=== PATIENT | male | born 1935 | race Caucasian/White ===

== ENCOUNTER 2017-12-19 16:01 | Inpatient (IN) ==
[2017-12-19] MEDS ORDERED: NITROGLYCERIN 0.4 MG SUBLINGUAL TABLET SL PRN (16:13)
[2017-12-19] MEDS ORDERED: ASPIRIN 81 MG CHEWABLE TABLET PO ONE (16:13)
[2017-12-19] MEDS ORDERED: Verapamil 5 MG/2 ML VIAL IVP ONE ×2 (16:14→17:05)
--- NOTE | 2017-12-19 16:16 | Emergency Department Report ---
Chest Pain HPI - General Stated Complaint: "raising" heartbeat & CP <DrissFlo C - 12/19/17 22:48> Time Seen by Provider: 12/19/17 16:13 <DrissFlo Morales - 12/19/17 22:48> Source: patient, family <Antonio Acuña Q - 12/19/17 18:12> Mode of arrival: ambulatory <Antonio Acuña - 12/19/17 18:12> Limitations: no limitations <Antonio Acuña - 12/19/17 18:12> - History of Present Illness HPI narrative: Patient is an 82-year-old male presents emergent primary for evaluation of racing heart. Patient does have a history of atrial fibrillation, not normally in atrial fibrillation. Patient believes last time he was in atrial fibrillation was 2 years ago. Patient is also transitioning onto Xarelto because he has a scheduled hernia surgery on Friday. Patient is to take 1 Xarelto tonight believe one tomorrow and then schedule his surgery on Friday. Patient at any rate today suddenly felt a racing heart about 1 PM, over the course the day he is continued to feel it so this evening he presented to the ER on arrival patient is irregularly irregular 145 and atrial fibrillation. Patient having minimal chest pain minimal shortness of breath. <Antonio Acuña Q - 12/19/17 18:12> - Related Data Home Medications Medication Instructions Recorded Confirmed Nitroglycerin 0.4 mg SL Q5MIN PRN #0 10/03/12 12/19/17 Dexlansoprazole [Dexilant] 60 mg PO DAILY #0 03/16/14 12/19/17 Albuterol Sulfate [Proair Hfa] 1 puff INH Q4H PRN #0 10/29/15 12/19/17 Warfarin Sodium 2 mg PO DAILY #0 10/29/15 12/19/17 Acetaminophen/Diphenhydramine 1 tab PO HS PRN 12/19/17 12/19/17 [Acetaminophen-Diphenhyd 500-25] Allopurinol [Zyloprim] 100 mg PO DAILY 12/19/17 12/19/17 Aspirin [Ecotrin] 81 mg PO DAILY 12/19/17 12/19/17 Clopidogrel Bisulfate [Clopidogrel] 75 mg PO DAILY 12/19/17 12/19/17 Digoxin [Digoxin] 125 mcg PO DAILY 12/19/17 12/19/17 Ferrous Sulfate [Iron] 325 mg PO DAILY 12/19/17 12/19/17 Fluticasone/Vilanterol Inhaler 1 puff INH DAILY 12/19/17 12/19/17 [Breo Ellipta 100-25 mcg Inhaler] Furosemide [Lasix 40 mg Tab] 40 mg PO DAILY 12/19/17 12/19/17 LORazepam [Ativan] 0.5 mg PO TID PRN 12/19/17 12/19/17 Levomilnacipran [Fetzima] 40 mg PO HS 12/19/17 12/19/17 Metoprolol Succinate [Toprol Xl] 50 mg PO HS 12/19/17 12/19/17 Montelukast [Singulair] 10 mg PO DAILY PRN 12/19/17 12/19/17 Nitroglycerin Patch [Nitro-Dur 0.2 1 patch TD DAILY 12/19/17 12/19/17 mg/Hr] Potassium Chloride 20 meq PO DAILY 12/19/17 12/19/17 Rivaroxaban [Xarelto] 20 mg PO O 12/19/17 12/19/17 Rosuvastatin [Crestor] 5 mg PO Q2D 12/19/17 12/19/17 Spironolactone [Aldactone] 25 mg PO DAILY 12/19/17 12/19/17 Tamsulosin [Flomax] 0.4 mg PO HS 12/19/17 12/19/17 Verapamil HCl [Verapamil ER] 120 mg PO DAILY 12/19/17 12/19/17 <Flo Naqvi - 12/19/17 22:48> Allergies Allergy/AdvReac Type Severity Reaction Status Date / Time No Known Allergies Allergy Verified 12/19/17 16:16 <Flo Naqvi - 12/19/17 22:48> Review of Systems Constitutional: Denies: fever, chills, weakness <Antonio Acuña Q - 12/19/17 18 :12> Eyes: Denies: eye pain, eye discharge <Antonio Acuña Q - 12/19/17 18:12> ENT: Denies: ear pain, throat pain, dental pain <Antonio Acuña Q - 12/19/17 18 :12> Cardiovascular: Reports: chest pain, dyspnea on exertion <Antonio Acuña Q - 18:12> Respiratory: Denies: cough, dyspnea, wheezes <Antonio Acuña 12/19/17 18:12 > Gastrointestinal: Denies: abdominal pain, nausea, vomiting <Antonio Acuña Q 12/19/17 18:12> Genitourinary: Denies: urgency, dysuria, frequency <Antonio Acuña 18:12> Neurological: Denies: headache, weakness, numbness <Antonio Acuña 18:12> Endocrine: Denies: fatigue <Antonio Acuña 12/19/17 18:12> Hematological/Lymphatic: Denies: easy bleeding <Antonio Acuña 12/19/17 18: 12> Allergic/Immunologic: Denies: facial swelling <Antonio Acuña 12/19/17 18: 12> [facility] Medical History (Last Reviewed 12/03/17 @ 14:51 by TAVON Odell) Atrial fibrillation (Acute Medical) CAD (coronary artery disease) (Acute Medical) Cataract (Acute Medical) Colon polyp (Acute Medical) High blood pressure (Acute Medical) IBD (inflammatory bowel disease) (Acute Medical) Pacemaker (Acute Medical) Anxiety (Chronic Medical) Asthma (Chronic Medical) Bronchitis (Chronic Medical) Depression (Chronic Medical) Stomach ulcer (Chronic Medical) Peewee-Weir breathing disorder (Resolved Medical) Stroke (Resolved Medical) <Flo Naqvi 12/19/17 22:48> Surgical History: Tonsillectomy 1953 Jessica lacy,. Quad bypass 2002,. Kidney Stones removed 1973,. Numerous stents,. Rt Shoulder Surgery,. Gallbladder, <Antonio Acuña 12/19/17 16:16> Family History: Family History (Last Reviewed 12/03/17 @ 14:51 by TAVON Odell) Mother Arthritis Cancer of thyroid High blood pressure Father Dementia <Flo Naqvi - 12/19/17 22:48> - Social History Smoking status: Never smoker <Antonio Acuña Q 12/19/17 16:16> Substance use type: does not use <Antonio Acuña 12/19/17 16:16> Alcohol intake frequency: does not drink <Antonio cAuña Q - 12/19/17 16:16> Household members: spouse <Antonio Acuña Q - 12/19/17 16:16> Current occupational status: retired <Antonio Acuña Q - 12/19/17 16:16> Physical Exam - General General appearance: alert, in no apparent distress <Helen Acuñan Q - 18:12> - Eye Eye exam: Present: PERRL, EOMI <Antonio Acuña Q - 12/19/17 18:12> - ENT ENT exam: Present: normal oropharynx, mucous membranes moist, TM's normal bilaterally <Antonio Acuña Q - 12/19/17 18:12> - Neck Neck exam: Present: full ROM, trachea midline <Helen Acuñan 12/19/17 18: 12> - Chest Chest inspection: Present: symmetric chest wall rise. Absent: tenderness < ArianneAntonio Q 12/19/17 18:12> - Respiratory Respiratory exam: Present: normal lung sounds bilaterally. Absent: respiratory distress, wheezes, stridor <Antonio Acuña Q - 12/19/17 18:12> - Cardiovascular Cardiovascular exam: Present: tachycardia, irregular rhythm, normal heart sounds <Helen Acuñan Q - 12/19/17 18:12> - Abdominal Exam Abdominal exam: Present: soft, normal bowel sounds. Absent: distention, tenderness <Helen Acuñan Q 12/19/17 18:12> - Back Exam Back exam: Present: full ROM <Helen Acuñan 12/19/17 18:12> - Skin Skin exam: Present: warm, dry <Antonio Acuña Q - 12/19/17 18:12> - Neurological Exam Neurological exam: Present: alert, oriented X3 <Helen Acuñan Q - 12/19/17 18: 12> - Psychiatric Psychiatric exam: Present: normal affect, normal mood <Helen Acuñan Q - 12/19 18:12> Course Vital Signs Temperature 98.6 F 12/19/17 16:10 Pulse Rate 146 H 12/19/17 16:10 Respiratory Rate 20 12/19/17 16:10 Blood Pressure 160/88 H 12/19/17 16:10 Pulse Oximetry 95 04/13/18 16:10 Temperature 98.6 F 12/19/17 16:10 Pulse Rate 110 H 12/19/17 20:44 Respiratory Rate 24 12/19/17 20:00 Blood Pressure 109/58 12/19/17 20:15 Pulse Oximetry 94 12/19/17 20:15 <Flo Naqvi C - 12/19/17 22:48> Vital Signs Temperature 98.6 F 12/19/17 16:10 Pulse Rate 146 H 12/19/17 16:10 Respiratory Rate 20 12/19/17 16:10 Blood Pressure 160/88 H 12/19/17 16:10 Pulse Oximetry 95 12/19/17 16:10 Temperature 98.6 F 12/19/17 16:10 Pulse Rate 110 H 12/19/17 20:44 Respiratory Rate 24 12/19/17 20:00 Blood Pressure 109/58 12/19/17 20:15 Pulse Oximetry 94 12/19/17 20:15 <Antonio Acuña Q - 12/19/17 18:12> Chest Pain - MDM Narrative Medical decision making narrative: The amiodarone does not convert the patient from atrial fibrillation. Dr. Lambert is recontacted and recommends admission to the hospitalist service for amiodarone protocol. Patient is discussed with Dr. Jorge Luis Briggs will be admitted to the hospitalist service to the ICU for further evaluation and treatment and amiodarone protocol. Patient is in agreement with the current plan of management. Dr. Briggs agrees to accept the patient to his service. Dr. Briggs will perform his own cardiology consultation to Dr. Huff. <Flo Naqvi - 12/19/17 22:48> Patient rate controlled with 15 mg of verapamil. Did discuss with hospital service and cardiology the possibility patient placement [facility] for cardioversion if needed. No director of land acquisition available to do cardioversion this week in. Discuss case with Dr. Lambert transition mgr for Dr. Barnett, patient's director of land acquisition. He would recommend 150 mg of amiodarone, continue to monitor for an hour and see if patient spontaneously converts. We'll transfer case to Dr. Naqvi, oncoming physician <Antonio Acuña - 12/19/17 18:12> - Differential Diagnosis Likely: fracture of rib, pneumothorax, stable angina, unstable angina pectoris, atypical chest pain, st elevation myocardial infarction, costochondritis, chest pain, biliary colic <Antonio Acuña Q - 12/19/17 18:12> - Medical Records Data Attestation: I reviewed the patient's medical records. <Antonio Acuña Q - 18:12> - Lab Data Attestation: I reviewed the patient's lab results. <Antonio Acuña Q - 18:12> Result diagrams: 12/19/17 16:50 12/19/17 16:50 <Flo Naqvi C - 12/19/17 22:48> Lab Results 12/19/17 12/19/17 12/19/17 Range/Units 16:50 16:50 16:50 WBC 9.2 (4.5-11.0) T/MM3 RBC 5.20 (4.50-5.90) M/MM3 Hgb 16.3 (13.5-17.5) GM/DL Hct 48.5 (41-53) % MCV 93.3 (80-100) UM3 MCH 31.3 (26-34) UUG MCHC 33.6 (31-37) GM/DL RDW Std Deviation 44.3 (36.9-50.2) FL Plt Count 218 (130-400) T/MM3 MPV 9.4 (9.4-12.4) UM3 Immature Gran % (Auto) 0.3 (0.0-0.5) % Neut % (Auto) 61.7 (33-66) % Lymph % (Auto) 22.2 L (23-45) % [place] % (Auto) 13.3 H (0-9.0) % Eos % (Auto) 2.2 (0-4) % Baso % (Auto) 0.3 (0-2) % Neut # (Auto) 5.7 (1.8-7.7) T/MM3 Lymph # (Auto) 2.1 (1-4.8) T/MM3 [place] # (Auto) 1.2 H (0-0.8) T/MM3 Eos # (Auto) 0.2 (0-0.5) T/MM3 Baso # (Auto) 0.0 (0-0.2) T/MM3 Abs Immat Gran (auto) 0.03 (0.00-0.03) T/MM3 INR 1.16 (0.92-1.18) Turbidity < 20 (0-20) Sodium 143 (134-144) MEQ/L Potassium 4.2 (3.6-5) MEQ/L Chloride 102 (98-107) MEQ/L Carbon Dioxide 27 (22-30) MEQ/L Anion Gap 14 (5-15) meq/L BUN 21.0 H (9-20) MG/DL Creatinine 1.1 (0.8-1.5) mg/dL GFR Calculation 64 BUN/Creatinine Ratio 19 (6-26) RATIO Glucose 137 H (75-110) MG/DL Calculated Osmolality 280 (261-280) MOSM/KG Calcium 9.4 (8.4-10.2) MG/DL Magnesium 2.1 (1.6-2.3) MG/DL Total Bilirubin 0.30 (0.20-1.30) MG/DL Icterus Index < 2 (0-7) AST 29 (17-59) U/L ALT 24 (1-50) U/L Alkaline Phosphatase 63 (38-126) U/L Troponin I < 0.012 (0-0.12) ng/ml NT-Pro-B Natriuret Pep 1940 H (0-175) pg/mL Total Protein 7.0 (6.3-8.2) g/dL Albumin 4.4 (3.5-5.0) g/dL Globulin 2.6 (2.4-3.6) G/DL Albumin/Globulin Ratio 1.7 (1.1-2.2) RATIO TSH 1.11 (0.47-4.68) mIU/L Specimen Hemolysis 21 (0-25) Digoxin 1.4 (0.8-2.0) NG/ML <NaqviBlaynek C - 12/19/17 22:48> Lab Results 12/19/17 12/19/17 12/19/17 Range/Units 16:50 16:50 16:50 WBC 9.2 (4.5-11.0) T/MM3 RBC 5.20 (4.50-5.90) M/MM3 Hgb 16.3 (13.5-17.5) GM/DL Hct 48.5 (41-53) % MCV 93.3 (80-100) UM3 MCH 31.3 (26-34) UUG MCHC 33.6 (31-37) GM/DL RDW Std Deviation 44.3 (36.9-50.2) FL Plt Count 218 (130-400) T/MM3 MPV 9.4 (9.4-12.4) UM3 Immature Gran % (Auto) 0.3 (0.0-0.5) % Neut % (Auto) 61.7 (33-66) % Lymph % (Auto) 22.2 L (23-45) % [place] % (Auto) 13.3 H (0-9.0) % Eos % (Auto) 2.2 (0-4) % Baso % (Auto) 0.3 (0-2) % Neut # (Auto) 5.7 (1.8-7.7) T/MM3 Lymph # (Auto) 2.1 (1-4.8) T/MM3 [place] # (Auto) 1.2 H (0-0.8) T/MM3 Eos # (Auto) 0.2 (0-0.5) T/MM3 Baso # (Auto) 0.0 (0-0.2) T/MM3 Abs Immat Gran (auto) 0.03 (0.00-0.03) T/MM3 INR 1.16 (0.92-1.18) Turbidity < 20 (0-20) Sodium 143 (134-144) MEQ/L Potassium 4.2 (3.6-5) MEQ/L Chloride 102 (98-107) MEQ/L Carbon Dioxide 27 (22-30) MEQ/L Anion Gap 14 (5-15) meq/L BUN 21.0 H (9-20) MG/DL Creatinine 1.1 (0.8-1.5) mg/dL GFR Calculation 64 BUN/Creatinine Ratio 19 (6-26) RATIO Glucose 137 H (75-110) MG/DL Calculated Osmolality 280 (261-280) MOSM/KG Calcium 9.4 (8.4-10.2) MG/DL Magnesium 2.1 (1.6-2.3) MG/DL Total Bilirubin 0.30 (0.20-1.30) MG/DL Icterus Index < 2 (0-7) AST 29 (17-59) U/L ALT 24 (1-50) U/L Alkaline Phosphatase 63 (38-126) U/L Troponin I < 0.012 (0-0.12) ng/ml NT-Pro-B Natriuret Pep 1940 H (0-175) pg/mL Total Protein 7.0 (6.3-8.2) g/dL Albumin 4.4 (3.5-5.0) g/dL Globulin 2.6 (2.4-3.6) G/DL Albumin/Globulin Ratio 1.7 (1.1-2.2) RATIO TSH 1.11 (0.47-4.68) mIU/L Specimen Hemolysis 21 (0-25) Digoxin 1.4 (0.8-2.0) NG/ML <Antonio Acuña Q - 12/19/17 18:12> - Radiology Data Attestation: I reviewed the patient's radiology results. <Antonio Acuña 18:12> No acute cardiopulmonary findings <Antonio Acuña 12/19/17 18:12> - EKG Data EKG #1 EKG attestation: Yes: I reviewed and interpreted this EKG. <Helen Acuñan Q 12/19/17 18:12> Rate: tachycardia <Helen Acuñan Q 12/19/17 18:12> Rhythm: A.Fib <Helen Acuñan Q 12/19/17 18:12> [place]/QRS: normal <Helen Acuñan 12/19/17 18:12> Interpretation: no acute changes <ArianneHelenn Q 12/19/17 18:12> EKG #2 EKG attestation: Yes: I reviewed and interpreted this EKG. <Helen Acuñan Q 12/19/17 18:12> Rate: tachycardia <ArianneAntonio Q 12/19/17 18:12> Rhythm: A.Fib <ArianneAntonio Q 12/19/17 18:12> [place]/QRS: normal <SmithfieldHelenn Q 12/19/17 18:12> Interpretation: no acute changes <Helen Acuñan Q 12/19/17 18:12> Disposition Clinical Impression: Atrial fibrillation <Flo Naqvi 12/19/17 22:48> Disposition: 02 To [facility] Acute Care <Flo Naqvi 12/19/17 22:48> Condition: Stable <Flo Naqvi 12/19/17 22:48> Prescriptions: No Action Warfarin Sodium 2 mg PO DAILY #0 Albuterol Sulfate [Proair Hfa] 1 puff INH Q4H PRN #0 PRN Reason: Prn Orders Ferrous Sulfate [Iron] 325 mg PO DAILY Clopidogrel Bisulfate [Clopidogrel] 75 mg PO DAILY Acetaminophen/Diphenhydramine [Acetaminophen-Diphenhyd 500-25] 1 tab PO HS PRN PRN Reason: Prn Orders Allopurinol [Zyloprim] 100 mg PO DAILY Aspirin [Ecotrin] 81 mg PO DAILY LORazepam [Ativan] 0.5 mg PO TID PRN PRN Reason: Anxiety Montelukast [Singulair] 10 mg PO DAILY PRN PRN Reason: Allergy Symptoms Nitroglycerin Patch [Nitro-Dur 0.2 mg/Hr] 1 patch TD DAILY Tamsulosin [Flomax] 0.4 mg PO HS Fluticasone/Vilanterol Inhaler [Breo Ellipta 100-25 mcg Inhaler] 1 puff INH DAILY Levomilnacipran [Fetzima] 40 mg PO HS Metoprolol Succinate [Toprol Xl] 50 mg PO HS Digoxin [Digoxin] 125 mcg PO DAILY Spironolactone [Aldactone] 25 mg PO DAILY Rosuvastatin [Crestor] 5 mg PO Q2D Potassium Chloride 20 meq PO DAILY Nitroglycerin 0.4 mg SL Q5MIN PRN #0 PRN Reason: Chest Pain Dexlansoprazole [Dexilant] 60 mg PO DAILY #0 Rivaroxaban [Xarelto] 20 mg PO O Furosemide [Lasix 40 mg Tab] 40 mg PO DAILY Verapamil HCl [Verapamil ER] 120 mg PO DAILY <Flo Naqvi 12/19/17 22: 48> Time of Disposition: 19:00 (Admit. Dr. Briggs. ) <Flo Naqvi 12/19/17 22:48 > - Seen By: physician <Flo Naqvi 12/19/17 22:48>
--- OUTSIDE RECORDS SUMMARY | 2017-12-19 16:27 | External Medical Summary | Referral Summary ---
:1935 Author Organization [facility], [address] [place] [id number] Care Team Providers Name Role Phone Tang James Primary Care Physician Encounter VC Date(s): 06/03/17 - 06/03/17 [facility] [place] [address] [place] [phone] Discharge Diagnosis: Hard skin lesion. Discharge Diagnosis: Mixed anxiety and depressive disorder Discharge Diagnosis: Pain of right breast Discharge Disposition: 01-Home or Self Care Attending Physician: Tang James DO Admitting Physician: Tang James DO Vital Signs Most recent to oldest [Reference Range]: 1 Temperature Tympanic [36.6-38.1 degC] 36.2 degC *LOW* (06/03/17 8:32 AM) Peripheral Pulse Rate [60-100 bpm] 81 bpm (06/03/17 8:32 AM) Respiratory Rate [14-20 br/min] 18 br/min (06/03/17 8:32 AM) Blood Pressure [90-140/60-90 mmHg] 132/58 mmHg (06/03/17 8:32 AM) SpO2 94 % (06/03/17 8:32 AM) Problem List Condition Effective Dates Status Health Status Informant Acute prostatitis Active (disorder)(Confirmed) Allergic rhinitis Active (disorder)(Confirmed) Anemia (disorder)(Confirmed) Active Anxiety(Confirmed) Active Atrial fibrillation Active (disorder)(Confirmed) CAD(Confirmed) Active 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 Peewee-Weir respiration(Confirmed) Chronic airway obstruction, not Active elsewhere classified(Confirmed) Chronic prostatitis(Confirmed)1 Active Depression(Confirmed) Active 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) Essential hypertension Active (disorder)(Confirmed) ocean transportation intermediary (current) use of Active anticoagulants(Confirmed) Impotence of organic origin Active (disorder)(Confirmed) Kidney stone(Confirmed) Active Asthma without status asthmaticus Active (disorder)(Confirmed) Mixed hyperlipidemia Active (disorder)(Confirmed) Obesity(Confirmed) Active patient Johnnie(Confirmed) 1948 Active Organic sleep apnea, Active unspecified(Confirmed) 1Acute Prostatitis See Conversion Document Allergies, Adverse Reactions, Alerts No Known Allergies Medications allopurinol 100 mg oral tablet See Instructions, TAKE 1 TABLET BY MOUTH DAILY, # 30 tabs, 5 Refill(s), Pharmacy : [facility], TAKE 1 TABLET BY MOUTH DAILY Start Date: 05/27/17 Status: OrderedAspirin Low Dose 81 mg, Oral, Daily, 0 Refill(s) Start Date: 03/22/14 Status: OrderedAtivan 0.5 mg oral tablet 1 tabs, Oral, Daily, 0 Refill(s) Start Date: 12/01/14 Status: OrderedAvodart 0.5 mg oral capsule See Instructions, TAKE 1 CAPSULE BY MOUTH DAILY, # 30 caps, 5 Refill(s), eRx: [facility], TAKE 1 CAPSULE BY MOUTH DAILY Start Date: 01/03/15 Status: OrderedBreo Ellipta 100 mcg-25 mcg/inh inhalation powder See Instructions, USE 1 INHALATION DAILY, # 30 inhalers, eRx: [facility] , USE 1 INHALATION DAILY Start Date: 07/30/16 Status: Orderedclopidogrel 75 mg oral tablet See Instructions, TAKE 1 TABLET BY MOUTH DAILY, # 90 tabs, 2 Refill(s), Pharmacy : [facility], TAKE 1 TABLET BY MOUTH DAILY Start Date: 11/22/16 Status: OrderedCrestor 5 mg oral tablet 5mg tabs, Oral, Every other day, 0 Refill(s) Start Date: 08/29/16 Status: OrderedDexilant 60 mg oral delayed release capsule See Instructions, TAKE 1 CAPSULE BY MOUTH DAILY, # 30 caps, 5 Refill(s), Pharmacy: [facility], TAKE 1 CAPSULE BY MOUTH DAILY Start Date: 05/27/17 Status: Ordereddigoxin 0.25 mg, Daily, take 1/2 tablet, 0 Refill(s) Start Date: 03/20/15 Status: Orderedferrous sulfate 65 mg, Oral, BID, 0 Refill(s) Start Date: 02/19/17 Status: OrderedFetzima 20 mg oral capsule, extended release 20 mg 1 caps, Oral, Daily, # 30 caps, 1 Refill(s), Pharmacy: [facility], 1 caps Oral Daily,x30 days Start Date: 06/03/17 Stop Date: 08/02/17 Status: OrderedFetzima 40 mg oral capsule, extended release 1 caps, Oral, Daily, 0 Refill(s) Start Date: 09/20/14 Status: OrderedFetzima 40 mg oral capsule, extended release 40 mg 1 caps, Oral, Daily, # 30 caps, 5 Refill(s), Pharmacy: [facility], 1 caps Oral Daily,x30 days Start Date: 05/27/17 Stop Date: 11/23/17 Status: OrderedLasix 20 mg oral tablet See Instructions, take 1 tablet (20MG) by oral route 2 times every day, # 60 tabs, 1 Refill(s), eRx:[facility], take 1 tablet (20MG) by oral route 2 times every day Start Date: 09/20/14 Status: OrderedMetoprolol Tartrate See Instructions, 100mg Take 0.5 (50mg) tablet by mouth daily, 0 Refill(s) Start Date: 02/19/17 Status: Orderedmetoprolol tartrate 100 mg oral tablet mg tabs, Oral, BID, 0 Refill(s) Start Date: 03/20/15 Status: Orderedmontelukast 10 mg oral tablet 10 mg 1 tabs, Oral, qPM, 0 Refill(s) Start Date: 01/10/16 Status: OrderedNitro TD Patch-A patches, TransDermal, Daily, 0 Refill(s) Start Date: 03/20/15 Status: OrderedNitrostat 0.4 mg sublingual tablet 1 tabs, SubLingual, q5min, as needed for chest pain, # 100 tabs, 0 Refill(s) Start Date: 03/22/14 Status: Orderedpotassium chloride 10 mEq oral tablet, extended release 10 mEq 1 tabs, Oral, BID, 0 Refill(s) Start Date: 01/17/15 Status: OrderedProAir HFA 90 mcg/inh inhalation aerosol See Instructions, INHALE 2 PUFFS EVERY FOUR(4) HOURS NEEDED, # 8.5 oz, 3 Refill(s), Pharmacy: [facility] Start Date: 06/03/17 Status: Orderedspironolactone 25 mg oral tablet 25 mg 1 tabs, Oral, Daily, # 30 tabs, 0 Refill(s) Start Date: 01/15/16 Status: Orderedtamsulosin 0.4 mg oral capsule 0.4 mg 1 caps, Oral, Daily, # 90 caps, 3 Refill(s), Pharmacy: [facility] , 1 caps Oral Daily,x90 days Start Date: 06/13/16 Stop Date: 06/08/17 Status: OrderedTylenol PM 0 Refill(s) Start Date: 12/01/14 Status: Orderedverapamil 120 mg, Oral, BID, 0 Refill(s) Start Date: 07/22/16 Status: Orderedwarfarin 2 mg oral tablet 1 tabs, Oral, Daily, # 30 tabs, 0 Refill(s) Start Date: 01/17/15 Status: Ordered Immunizations Given and Recorded Vaccine Date Status Refusal Reason influenza virus vaccine, inactivated1 07/04/16 Recorded influenza virus vaccine, inactivated 06/21/15 Recorded influenza virus vaccine, inactivated2 06/01/14 Recorded pneumococcal 13-valent conjugate vaccine 06/21/15 Recorded influenza virus vaccine, live 06/28/13 Given influenza virus vaccine, live 07/20/12 Given influenza virus vaccine, live 06/11/10 Given tetanus/diphth/pertuss (Tdap) adult/adol 09/23/11 Recorded tetanus-diphth toxoids (Td) adult/adol 11/08/08 Given zoster vaccine live 09/14/07 Given 1Location History: reports he had this [id number] Comment: [06/01/2014] fluzone high dose. 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 5 Vessel [id number] Social History Social History Type Response Smoking Status Never smoker entered on: 04/05/14 Assessment and Plan Extracted from: Title: Office Visit Note Author: Tang James DO Date: 06/03/17 1.Hard skin lesion. 1. Recommended scheduling time for excision of both lesions of the right arm. Ordered: Office Visit Level 4 Est 52832 Mixed anxiety and depressive disorder 1. Increase Fetzima to 60 mg daily. 2. Follow up in a month for reevaluation. Ordered: levomilnacipran, 20 mg 1 caps, Oral, Daily, # 30 caps, 1 Refill(s), Pharmacy : [facility], 1 caps Oral Daily,x30 days Office Visit Level 4 Est 38271 Pain of right breast 1. This is likely secondary to Spironolactone 2. Avoid caffeinated drinks. Ordered: Office Visit Level 4 Est 02778
--- OUTSIDE RECORDS SUMMARY | 2017-12-19 16:30 | External Medical Summary | Continuity of Care Document ---
:1935 Author Organization [facility] Allergies Active Description Code Type Severity Reaction Onset Reported/ Identified Relationship Clinical to Patient Status Yes NKDA N/A N/A Yes No Known [id number] Unknown N/A 08/13/2011 Allergies 8 Yes No Known NKMA N/A N/A 03/22/2014 Allergies Yes No Known Aller Unknown N/A 12/03/2017 Allergies gy Medications Medication Packaging Start Stop Route Dosage Sig Date Date SL 0.4 mg Nitroglycerin 3 Q5MIN Ativan PO 0.5 mg 3 PRN ATIVAN ORAL ORAL 50 3 016 at bedtime PO 60 mg Dexilant 4 DAILY Plavix PO 75 mg 4 DAILY 1 tabs Oral 20 mg lisinopril(lisinopr 4 015 1 tabs, il 20 mg oral Oral, Daily tablet) 1 tabs Oral 5 mg rosuvastatin(Cresto 4 015 1 tabs, r 5 mg oral tablet) Oral, MWF, 90 tabs, 0 Refill(s) 2 caps Oral 120 mg DULoxetine(Cymbalta 4 015 2 caps, 60 mg oral delayed Oral, Daily release capsule) 1 caps Oral 0.5 mg dutasteride(Avodart 4 014 1 caps, 0.5 mg oral Oral, Daily, capsule) 30 caps 1 tabs Oral 20 mg furosemide(Lasix 20 4 015 1 tabs, mg oral tablet) Oral, BID 1 tabs Oral 400 mg dronedarone(Multaq 4 015 1 tabs, 400 mg oral tablet) Oral, BID, 60 tabs 1 tabs Oral 75 mg clopidogrel(Plavix 4 014 1 tabs, 75 mg oral tablet) Oral, Daily, 90 tabs 1 tabs SubLingual 0.4 mg nitroglycerin(Nitro 4 1 tabs, stat 0.4 mg SubLingual, sublingual tablet) q5min, 100 tabs, PRN: as needed for chest pain 1 tabs Oral 0.5 mg LORazepam(LORazepam 4 015 1 tabs, 0.5 mg oral tablet) Oral, Bedtime (once a day) 1 tabs Oral 80 mg verapamil(verapamil 4 015 1 tabs, 80 mg oral tablet) Oral, BID 1 caps Oral 8 mg silodosin(Rapaflo 8 4 014 1 caps, mg oral capsule) Oral, Daily, 90 caps 2 tabs Oral 40 mg predniSONE(predniSO 4 014 2 tabs, NE 20 mg oral Oral, BID, tablet) 20 tabs silodosin(Rapaflo 8 4 015 See mg oral capsule) Instructions , take 1 capsule (8MG) by oral route every day with a meal, 30 unknown unit 2 tabs Oral 40 mg predniSONE(predniSO 4 014 2 tabs, NE 20 mg oral Oral, Daily, tablet) 10 tabs 1 denisa Topical triamcinolone 4 014 1 denisa, topical(triamcinolo Topical, ne 0.1% topical TID, 30 g cream) 1 denisa Topical triamcinolone 4 014 1 denisa, topical(triamcinolo Topical, ne 0.1% topical TID, 60 g cream) 1 tabs Oral amoxicillin-clavula 4 014 1 tabs, jamel(Augmentin 875 Oral, q12hr, mg-125 mg oral 20 tabs tablet) 5 mL Oral HYDROcodone-chlorph 4 015 5 mL, Oral, eniramine(Tussionex q12hr, 120 [employer] 10 mg-8 mL, PRN: as mg/5 mL oral needed for suspension, cough extended release) 1 tabs Oral HYDROcodone-acetami 4 015 1 tabs, nophen(Wildwood 5 Oral, q6hr, mg-325 mg oral 30 tabs, tablet) PRN: 1-2 every 6 hrs as needed for pain furosemide(Lasix 20 5 See mg oral tablet) Instructions , take 1 tablet (20MG) by oral route 2 times every day, 60 tabs 1 caps Oral 40 mg levomilnacipran(Fet 5 1 caps, zima 40 mg oral Oral, Daily, capsule, extended 0 Refill(s) release) 1 tabs Oral 20 mg predniSONE(predniSO 5 015 1 tabs, NE 20 mg oral Oral, Daily, tablet) 5 tabs FETZIMA ORAL ORAL 30 5 daily 1 caps Oral 60 mg dexlansoprazole(Dex 5 015 1 caps, ilant 60 mg oral Oral, Daily, delayed release 30 caps capsule) diltiazem(diltiazem 5 015 ) tabs Oral mcg digoxin(digoxin 125 5 015 tabs, Oral, mcg (0.125 mg) oral Daily tablet) potassium 5 015 chloride(potassium chloride 10 mEq/50 mL intravenous solution) tabs Oral mg warfarin(Coumadin 5 5 015 tabs, Oral, mg oral tablet) Daily tabs Oral mg warfarin(Coumadin 5 015 tabs, Oral, 2.5 mg oral tablet) Daily puffs Inhalation albuterol(ProAir 5 015 puffs, HFA 90 mcg/inh Inhalation, inhalation aerosol) QID 2 puffs Inhalation fluticasone(Flovent 5 015 2 puffs, HFA 110 mcg/inh Inhalation, inhalation aerosol) BID, 12 g Oral 6.25 mg captopril(captopril 5 015 6.25 mg, ) Oral, TID acetaminophen-diphe 5 nhydrAMINE(Tylenol PM) 1 tabs Oral 0.5 mg LORazepam(Ativan 5 1 tabs, 0.5 mg oral tablet) Oral, Daily dexlansoprazole(Dex 5 015 See ilant 60 mg oral Instructions delayed release , TAKE 1 capsule) CAPSULE BY MOUTH DAILY, 90 caps tabs Oral mg lisinopril(lisinopr 5 015 tabs, Oral, il 10 mg oral Daily tablet) 1 caps Oral 0.4 mg tamsulosin(tamsulos 5 015 1 caps, in 0.4 mg oral Oral, capsule) Bedtime (once a day), 90 caps 1 tabs Oral 120 mg diltiazem(diltiazem 5 015 1 tabs, 120 mg oral tablet) Oral, Bedtime (once a day), for 30 days, 30 tabs, 0 Refill(s) 1 tabs Oral 25 mg carvedilol(carvedil 5 015 1 tabs, ol 25 mg oral Oral, BID, tablet) 180 tabs, 0 Refill(s) 1 tabs Oral 75 mg clopidogrel(clopido 5 015 1 tabs, grel 75 mg oral Oral, Daily, tablet) 30 tabs, 0 Refill(s) 1 tabs Oral 2 mg warfarin(warfarin 2 5 1 tabs, mg oral tablet) Oral, Daily, 30 tabs, 0 Refill(s) 1 tabs Oral 10 mEq potassium 5 10 mEq=1 chloride(potassium tabs, Oral, chloride 10 mEq BID, 0 oral tablet, Refill(s) extended release) 1 tabs Oral 75 mg clopidogrel(Plavix 5 015 1 tabs, 75 mg oral tablet) Oral, Daily, 30 tabs, 0 Refill(s) albuterol(ProAir 5 016 See HFA 90 mcg/inh Instructions inhalation aerosol) , 2 PUFF Q4HRS PRN, 1 inhalers, 5 Refill(s) 1 tabs Oral 4 mg ondansetron(Zofran 5 015 as needed 4 mg oral tablet) for nausea/vomit ing, # 30 tabs, 0 Refill(s), Pharmacy: [facility], 1 tabs Oral q6hr,PRN:Marty sea or Vomiting as needed for nausea/vomit ing 4 mg=1 tabs, Oral, q6hr, PRN: Nausea or Vomiting as needed for nausea/vomit ing, 30 tabs, ... tabs Oral mg metoprolol(metoprol 5 mg=tabs, ol tartrate 100 mg Oral, BID, 0 oral tablet) Refill(s) 0.25 mg digoxin(digoxin) 5 0.25 mg, Daily, take 1/2 tablet, 0 Refill(s) puffs Inhalation fluticasone-vilante 5 puffs, rol(Breo Ellipta Inhalation, 100 mcg-25 mcg Daily, 0 inhalation powder) Refill(s) puffs Inhalation fluticasone-vilante 5 016 puffs, rol(Breo Ellipta Inhalation, 100 mcg-25 mcg Daily, 0 inhalation powder) Refill(s) tabs Oral 120 mg verapamil(verapamil 5 016 120 mg, 80 mg oral tablet) Oral, BID, 0 Refill(s) FETZIMA Oral Oral 30 5 daily dexlansoprazole(Dex 5 016 See ilant 60 mg oral Instructions delayed release , TAKE 1 capsule) CAPSULE BY MOUTH DAILY, 90 caps tamsulosin(tamsulos 5 016 See in 0.4 mg oral Instructions capsule) , 1 caps Oral Bedtime (once a day), 90 caps 3 tabs Oral 30 mg predniSONE(predniSO 5 015 30 mg=3 NE 10 mg oral tabs, Oral, tablet) Daily, for 3 days, 9 tabs, 0 Refill(s) mL Oral acetaminophen-diphe 5 017 mL, Oral, nhydramine(Tylenol Bedtime PM) (once a day), 0 Refill(s) 1 caps Oral 10 mg dicyclomine(dicyclo 5 016 10 mg=1 mine 10 mg oral caps, Oral, capsule) q8hr, for 10 days, PRN: Abdominal Cramping, 30 caps, 0 Refill(s) 1 caps Oral 500 mg cephalexin(Keflex 6 016 500 mg=1 500 mg oral caps, Oral, capsule) BID, for 7 days, 14 caps, 0 Refill(s) 1 tabs Oral HYDROcodone-acetami 6 016 1 tabs, nophen(Wildwood 5 Oral, q6hr, mg-325 mg oral PRN: as tablet) needed for pain, 30 tabs, 0 Refill(s) 1 tabs Oral 20 mg predniSONE(predniSO 6 016 20 mg=1 NE 20 mg oral tabs, Oral, tablet) Daily, for 5 days, 5 tabs, 0 Refill(s) 1 tabs Oral 100 mg allopurinol(allopur 6 016 100 mg=1 inol 100 mg oral tabs, Oral, tablet) BID, 60 tabs, 2 Refill(s) Proair INH 8.5 gm Hfa 6 PRN Eq PO 1 each Acetaminophen Pm 6 HS Gelcap Fetzima PO 40 mg 6 DAILY TD 1 each Nitroglycerin Patch 6 DAILY PO 100 mg Allopurinol 6 DAILY PO 0.4 mg Tamsulosin HCl 6 DAILY PO 2 mg Warfarin Sodium 6 DAILY PO 10 mg Montelukast Sodium 6 DAILY dexlansoprazole(Dex 6 016 See ilant 60 mg oral Instructions delayed release , TAKE 1 capsule) CAPSULE BY MOUTH DAILY, 90 caps 1 tabs Oral 0.5 mg clonazePAM(clonazeP 6 016 0.5 mg=1 AM 0.5 mg oral tabs, Oral, tablet) Bedtime (once a day), for 30 days, 30 tabs, 0 Refill(s) Oral 100 mg allopurinol(allopur 6 016 100 mg, inol 100 mg oral Oral, BID, tablet) 60 tabs, 2 Refill(s) tamsulosin(tamsulos 6 See in 0.4 mg oral Instructions capsule) , TAKE 1 CAPSULE DAILY AT BEDTIME, 90 caps 1 denisa Topical triamcinolone 6 016 1 denisa, topical(triamcinolo Topical, ne 0.5% topical BID, 45 g, 0 ointment) Refill(s) 1 tabs Oral 0.5 mg clonazePAM(clonazeP 6 016 0.5 mg=1 AM 0.5 mg oral tabs, Oral, tablet) Bedtime (once a day), for 30 days, 30 tabs, 0 Refill(s) ORAL ORAL 30 CLONAZEPAM 6 at bedtime 1 tabs Oral 10 mg montelukast(montelu 6 10 mg=1 kast 10 mg oral tabs, Oral, tablet) qPM, 0 Refill(s) 1 tabs Oral 20 mg predniSONE(predniSO 6 016 20 mg=1 NE 20 mg oral tabs, Oral, tablet) Daily, for 5 days, 5 tabs, 0 Refill(s) 1 tabs Oral 0.5 mg clonazePAM(clonazeP 6 016 0.5 mg=1 AM 0.5 mg oral tabs, Oral, tablet) Bedtime (once a day), for 30 days, 30 tabs, 0 Refill(s) 1 tabs Oral 25 mg spironolactone(spir 6 25 mg=1 onolactone 25 mg tabs, Oral, oral tablet) Daily, 30 tabs, 0 Refill(s) 1 tabs Oral sulfamethoxazole-tr 6 016 1 tabs, imethoprim(Bactrim Oral, BID, DS 800 mg-160 mg for 7 days, oral tablet) 14 tabs, 0 Refill(s) IntraMuscular 1 g cefTRIAXone(cefTRIA 6 016 1 g, Xone) IntraMuscula r, Daily 1 tabs Oral sulfamethoxazole-tr 6 016 1 tabs, imethoprim(Bactrim Oral, BID, DS 800 mg-160 mg for 7 days, oral tablet) 14 tabs, 0 Refill(s) Oral spironolactone(spir 6 016 Oral, 0 onolactone) Refill(s) 1 tabs Oral acetaminophen-codei 6 016 1 tabs, ne(Tylenol with Oral, q6hr, Codeine #3 oral PRN: as tablet) needed for pain, 30 tabs, 0 Refill(s) allopurinol(allopur 6 016 See inol 100 mg oral Instructions tablet) , TAKE 1 TABLET BY MOUTH TWICE A DAY, 60 tabs, 2 Refill(s) 1 tabs Oral 1 mg clonazePAM(clonazeP 6 017 1 mg=1 tabs, AM 1 mg oral Oral, tablet) Bedtime (once a day), 30 tabs, 0 Refill(s) 1 tabs Oral acetaminophen-codei 6 016 1 tabs, ne(Tylenol with Oral, q6hr, Codeine #3 oral PRN: as tablet) needed for pain, 30 tabs, 0 Refill(s) dexlansoprazole(Dex 6 See ilant 60 mg oral Instructions delayed release , TAKE 1 capsule) CAPSULE BY MOUTH DAILY, 90 caps, 2 Refill(s) 5 mL Oral promethazine-codein 6 016 5 mL, Oral, e(promethazine-code q6hr, PRN: ine 6.25 mg-10 mg/5 as needed mL oral syrup) for cough, 120 mL, 0 Refill(s) allopurinol(allopur 6 017 See inol 100 mg oral Instructions tablet) , TAKE 1 TABLET BY MOUTH DAILY, 30 tabs, 1 Refill(s) Oral 120 mg verapamil(verapamil 6 120 mg, ) Oral, BID, 0 Refill(s) 1 tabs Oral 20 mg predniSONE(predniSO 6 016 20 mg=1 NE 20 mg oral tabs, Oral, tablet) Daily, for 5 days, 5 tabs, 0 Refill(s) 1 tabs Oral 20 mg predniSONE(predniSO 6 016 20 mg=1 NE 20 mg oral tabs, Oral, tablet) Daily, for 5 days, 5 tabs, 0 Refill(s) Oral rosuvastatin(Cresto 6 5mg tabs, r 5 mg oral tablet) Oral, Every other day, 0 Refill(s) allopurinol(allopur 7 See inol 100 mg oral Instructions tablet) , TAKE 1 TABLET BY MOUTH DAILY, 30 tabs, 5 Refill(s) DOCUSATE SODIUM 7 017 BIDPRN ZOLPIDEM 7 017 HSPRN ACETAMINOPHEN 7 017 Q4HPRN ACETAMINOPHEN 7 017 Q4HPRN SODIUM CHLORIDE 0.9 % 7 017 PRNIV ALUM-MAG 7 017 PRN HYDROXIDE-SIMETH MAGNESIUM HYDROXIDE 7 017 PRN NITROGLYCERIN 7 017 PRNCP LORazepam 7 017 Q8-12HPRN ACETAMINOPHEN 7 017 HSPRN NITROGLYCERIN 7 017 [id number] FUROSEMIDE 7 017 BID4PM HYDROCODONE-ACET 7 017 Q3HPRN 5-325MG ACETAMINOPHEN 7 017 Q4HPRN ONDANSETRON HCL 7 017 Q6HPRN MORPHINE 7 017 Q2HPRN DIAZEPAM 7 017 Q6HPRN POTASSIUM CHLORIDE 7 017 BIDWM ASPIRIN 7 017 0700 FERROUS SULFATE 7 017 BIDWM VERAPAMIL 7 017 BID METOPROLOL 7 017 PM SUCCINATE TAMSULOSIN 7 017 HS ASPIRIN EC 7 017 HS CLOPIDOGREL 7 017 HS DEXLANSOPRAZOLE 7 017 ACB NITROGLYCERIN 7 017 PATCH 0.2MG/HR ROSUVASTATIN 7 017 QD CLOPIDOGREL 7 017 QD ALLOPURINOL 7 017 QD SPIRONOLACTONE 7 017 QD DIGOXIN 7 017 DIG 1 tabs Oral 0.5 mg LORazepam(Ativan 7 017 0.5 mg=1 0.5 mg oral tablet) tabs, Oral, q6hr, PRN: as needed for anxiety, 30 tabs, 0 Refill(s) ferrous Oral 65 mg sulfate(ferrous 7 65 mg, Oral, sulfate) BID, 0 Refill(s) PO 20 meq Potassium Chloride 7 DAILY Ferrous PO 325 mg Sulfate 7 BID Crestor PO 5 mg 7 .QOD Digoxin PO 250 mcg 7 DAILY PO 100 mg Metoprolol Tartrate 7 DAILY PO 40 mg Furosemide 7 QAM Calan PO 120 mg 7 BID PO 25 mg Aldactone 7 QAM 1 caps Oral 40 mg levomilnacipran(Fet 7 018 40 mg=1 zima 40 mg oral caps, Oral, capsule, extended Daily, for release) 30 days, 30 caps, 5 Refill(s) 1 caps Oral 40 mg levomilnacipran(Fet 7 018 40 mg=1 zima 40 mg oral caps, Oral, capsule, extended Daily, for release) 30 days, 30 caps, 5 Refill(s) dexlansoprazole(Dex 7 See ilant 60 mg oral Instructions delayed release , TAKE 1 capsule) CAPSULE BY MOUTH DAILY, 30 caps, 5 Refill(s) allopurinol(allopur 7 See inol 100 mg oral Instructions tablet) , TAKE 1 TABLET BY MOUTH DAILY, 30 tabs, 5 Refill(s) dexlansoprazole(Dex 7 See ilant 60 mg oral Instructions delayed release , TAKE 1 capsule) CAPSULE BY MOUTH DAILY, 30 caps, 5 Refill(s) allopurinol(allopur 7 See inol 100 mg oral Instructions tablet) , TAKE 1 TABLET BY MOUTH DAILY, 30 tabs, 5 Refill(s) albuterol(ProAir 7 See HFA 90 mcg/inh Instructions inhalation aerosol) , INHALE 2 PUFFS EVERY FOUR(4) HOURS NEEDED, 8.5 oz, 3 Refill(s) albuterol(ProAir 7 See HFA 90 mcg/inh Instructions inhalation aerosol) , INHALE 2 PUFFS EVERY FOUR(4) HOURS NEEDED, 8.5 oz, 3 Refill(s) 1 caps Oral 20 mg levomilnacipran(Fet 7 017 20 mg=1 zima 20 mg oral caps, Oral, capsule, extended Daily, for release) 30 days, 30 caps, 1 Refill(s) 1 caps Oral 20 mg levomilnacipran(Fet 7 017 20 mg=1 zima 20 mg oral caps, Oral, capsule, extended Daily, for release) 30 days, 30 caps, 1 Refill(s) tamsulosin(tamsulos 7 See in 0.4 mg oral Instructions capsule) , TAKE 1 CAPSULE DAILY AT BEDTIME, 90 caps, 5 Refill(s) 1 caps Oral 40 mg levomilnacipran(Fet 7 018 40 mg=1 zima 40 mg oral caps, Oral, capsule, extended Daily, for release) 90 days, 90 caps, 1 Refill(s) 1 caps Oral 20 mg levomilnacipran(Fet 7 018 20 mg=1 zima 20 mg oral caps, Oral, capsule, extended Daily, for release) 90 days, 90 caps, 1 Refill(s) PO 10 meq Klor-Con Sprinkle 7 DAILY Fetzima PO 20 mg 7 DAILY Breo INH 14 Ellipta 100-25 mcg 7 puff/inha DAILY Inhaler ler Digoxin PO 250 mcg 7 DAILY PO 0.5 mg Dutasteride 7 DAILY PO 25 mg Aldactone 7 DAILY PO 10 meq Klor-Con Sprinkle 8 DAILY Problems Date Dx Attending Type Code Diagnosis Diagnosed By Coded 09/27/2013 Admitting 786.09 RESP ABNORMALITY NEC 10/25/2013 Admitting 786.05 SHORTNESS OF BREATH 01/15/2016 Tang James Final J45.30 Mild persistent asthma, uncomplicated 01/15/2016 Tang James Final J45.909 Unspecified asthma, uncomplicated 01/15/2016 Tang James Final I50.42 Chronic combined systolic (congestive) and diastolic (congestive) heart failure 01/15/2016 Tang James Final I50.9 Heart failure, unspecified 02/29/2016 Final G47.31 Primary central sleep apnea 04/16/2016 Tang James Final L60.0 Ingrowing nail 04/18/2016 Tang James Final Z51.89 Encounter for other specified aftercare 04/25/2016 Tang James Final G89.18 Other acute postprocedural pain 05/07/2016 Tang James Final Z48.89 Encounter for other specified surgical aftercare 05/22/2016 Tang James Final C44.319 Basal cell carcinoma of skin of other parts of face 05/22/2016 Tang James Final C44.320 Squamous cell carcinoma of skin of unspecified parts of face 05/22/2016 Tang James Final C44.329 Squamous cell carcinoma of skin of other parts of face 05/22/2016 Tang James Final C44.91 Basal cell carcinoma of skin, unspecified 05/24/2016 TecTang joshi Final Z48.89 Encounter for other specified surgical aftercare 05/27/2016 Tang James Final R42 Dizziness and giddiness 05/27/2016 Tang James Final Z48.89 Encounter for other specified surgical aftercare 06/03/2016 TecTang joshi Final Z48.89 Encounter for other specified surgical aftercare 06/06/2016 Tang James Final J32.9 Chronic sinusitis, unspecified 06/13/2016 TecTang joshi Final N40.1 Benign prostatic hyperplasia with lower urinary tract symptoms 06/13/2016 Tang James Final M62.81 Muscle weakness (generalized) 06/13/2016 Tang James Final Z51.89 Encounter for other specified aftercare 06/13/2016 Tang James Final Z71.89 Other specified counseling 07/22/2016 Tang James Final N64.4 Mastodynia 07/22/2016 TecTang joshi Final R30.0 Dysuria 07/22/2016 TecTang joshi Final Z79.899 Other oil heaterman (current) drug therapy 08/05/2016 Tang James Final N64.4 Mastodynia 08/20/2016 Huma Cheng Final G47.33 Obstructive sleep apnea (adult) (pediatric) 08/20/2016 Huma Cheng Final R06.81 Apnea, not elsewhere classified 08/22/2016 Tang James Final A74.89 Other chlamydial diseases 08/29/2016 Tang James Final J45.40 Moderate persistent asthma, uncomplicated 09/10/2016 Tang James Final S70.02XA Contusion of left hip, initial encounter 11/15/2016 Tang James Final L82.0 Inflamed seborrheic keratosis 11/15/2016 Tang James Final M25.551 Pain in right hip 12/12/2016 Tang James Final R53.83 Other fatigue 12/12/2016 Tang James Final K59.01 Slow transit constipation 12/26/2016 Tang James Final R42 Dizziness and giddiness 12/26/2016 Tang James Final R53.1 Weakness 12/26/2016 Tang James Final R53.83 Other fatigue 02/15/2017 JUANPABLO GRACE S E66.9 OBESITY, UNSPECIFIED JUANPABLO GRACE Stephanie M 02/15/2017 JUANPABLO GRACE E78.5 HYPERLIPIDEMIA, KEYSHAWNLUANKOKINE Stephanie UNSPECIFIED M 02/15/2017 JUANPABLO GRACE G47.33 OBSTRUCTIVE SLEEP JUANPABLO GRACE APNEA (ADULT) M (PEDIATRIC) 02/15/2017 JUANPABLO GRACE 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 4 CHRONIC KIDNEY DISEASE, OR UNSPECIFIED CHRONIC KIDNEY DISEASE 02/15/2017 JUANPABLO GRACE P 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 02/15/2017 JUANPABLO GRACE S I25.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 OF LESLY JUANPABLO Stephanie AUTOLOGOUS VEIN M CORONARY ARTERY BYPASS GRAFT(S) WITH UNSTABLE ANGINA PECTORIS 02/15/2017 JUANPABLO GRACE 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 02/15/2017 JUANPABLO GRACE S 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 02/15/2017 JUANPABLO GRACE 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 02/15/2017 JUANPABLO GRACE I49.5 SICK SINUS SYNDROME LESLYKOKINE Stephanie M 02/15/2017 JUANPABLO GRACE I50.32 CHRONIC DIASTOLIC JUANPABLO GRACE (CONGESTIVE) HEART M FAILURE 02/15/2017 JUANPABLO GRACE N18.9 CHRONIC KIDNEY LESLY JUANPABLO Stephanie DISEASE, UNSPECIFIED M 02/15/2017 JUANPABLO GRACE 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, M INITIAL ENCOUNTER 02/15/2017 JUANPABLO GRACE Z68.28 BODY MASS INDEX JUANPABLO GRACE (BMI) 28.0-28.9, M ADULT 02/15/2017 JUANPABLO GRACE Z79.01 RESIDENTIAL (CURRENT) JUANPABLO GRACE USE OF M ANTICOAGULANTS 02/15/2017 JUANPABLO GRACE S Z79.82 NUTRITION SERVICES MANAGER (CURRENT) LESLYKOKINE Stephanie USE OF ASPIRIN M 02/15/2017 JUANPABLO GRACE S Z79.899 OTHER NUTRITION SERVICES MANAGER LESLYKOKINE Stephanie (CURRENT) DRUG M THERAPY 02/15/2017 JUANPABLO GRACE S Z95.0 PRESENCE OF CARDIAC JUANPABLO GRACE Stephanie PACEMAKER M 02/17/2017 Teck, Tang Final F41.1 Generalized anxiety disorder 02/17/2017 Teck, Tang Final L82.1 Other seborrheic keratosis 02/17/2017 Teck, Tang Final R42 Dizziness and giddiness 04/16/2017 Teck, Tang Final J20.9 Acute bronchitis, unspecified 04/18/2017 Teck, Tang Final Z51.89 Encounter for other specified aftercare 06/03/2017 Teck, Tang Final F41.8 Other specified anxiety disorders 06/03/2017 Teck, Tang Final N64.4 Mastodynia 06/03/2017 Teck, Tang Final R22.32 Localized swelling, mass and lump, left upper limb 06/27/2017 Teck, Tang Final Z48.02 Encounter for removal of sutures 07/01/2017 Teck, Tang Final K40.90 Unilateral inguinal hernia, without obstruction or gangrene, not specified as recurrent 07/01/2017 Teck, Tang Final S01.341A Puncture wound with foreign body of right ear, initial encounter 09/16/2017 Roslyn, Final G47.31 Primary central Faby R sleep apnea 09/16/2017 Roslyn, Final G47.33 Obstructive sleep Faby R apnea (adult) (pediatric) 10/13/2017 Huma Cheng Final G47.33 Obstructive sleep apnea (adult) (pediatric) 12/03/2017 ANTONY DUARTE, K40.90 Unilateral inguinal HUMA HARDY MD FACS CWS hernia, without HUMA Brown FACS obstruction or CWS gangrene, not specified as recurrent Procedures Code Description [place] [id number] Office or 01/10/2016 other outpatient visit for the evaluation and management of an established patient, which requires at least 2 of these 3 ybarra components: An expanded problem focused history; An expanded prob [id number] Office or 01/15/2016 other outpatient visit for the evaluation and management of an established patient, which requires at least 2 of these 3 ybarra components: An expanded problem focused history; An expanded prob [id number] Office or 02/07/2016 other outpatient visit for the evaluation and management of an established patient, which requires at least 2 of these 3 ybarra components: An expanded problem focused history; An expanded prob [id number] Therapeutic, 02/27/2016 prophylactic, or diagnostic injection (specify substance or drug); subcutaneous or intramuscular [id number] Office or 02/27/2016 other outpatient visit for the evaluation and management of an established patient, which requires at least 2 of these 3 ybarra components: A detailed history; A detailed examination; Medical d [id number] Office or 02/29/2016 other outpatient visit for the evaluation and management of an established patient, which requires at least 2 of these 3 ybarra components: An expanded problem focused history; An expanded prob 14986 Office or 04/16/2016 other outpatient visit for the evaluation and management of an established patient, which requires at least 2 of these 3 ybarra components: An expanded problem focused history; An expanded prob [id number] Office or 04/18/2016 other outpatient visit for the evaluation and management of an established patient, which requires at least 2 of these 3 ybarra components: An expanded problem focused history; An expanded prob [id number] Office or 04/25/2016 other outpatient visit for the evaluation and management of an established patient, which requires at least 2 of these 3 ybarra components: An expanded problem focused history; An expanded prob [id number] Shaving of 05/07/2016 epidermal or dermal lesion, single lesion, face, ears, eyelids, nose, lips, mucous membrane; lesion diameter 0.6 to 1.0 cm [id number] Level IV - 05/07/2016 Surgical pathology, gross and microscopic examination - spontaneous/missed Artery, biopsy Bone marrow, biopsy Bone exostosis Brain/meninges, other than for tumor resection Breast, [id number] Office or 05/07/2016 other outpatient visit for the evaluation and management of an established patient, which requires at least 2 of these 3 ybarra components: An expanded problem focused history; An expanded prob [id number] Excision, 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, face, ears, eyelids, nose, lips; excised diameter 0.6 to 1.0 cm [id number] Repair, 05/22/2016 complex, eyelids, nose, ears and/or lips; 2.6 cm to 7.5 cm 41221 Level IV - 05/22/2016 Surgical pathology, gross and microscopic examination - spontaneous/missed Artery, biopsy Bone marrow, biopsy Bone exostosis Brain/meninges, other than for tumor resection Breast, [id number] Office or 05/22/2016 other outpatient visit for the evaluation and management of an established patient, which requires at least 2 of these 3 ybarra components: A detailed history; A detailed examination; Medical d [id number] Office or 05/24/2016 other outpatient visit for the evaluation and management of an established patient, which requires at least 2 of these 3 ybarra components: An expanded problem focused history; An expanded prob 48188 Office or 05/27/2016 other outpatient visit for the evaluation and management of an established patient, which requires at least 2 of these 3 ybarra components: An expanded problem focused history; An expanded prob 47220 Office or 06/06/2016 other outpatient visit for the evaluation and management of an established patient, which requires at least 2 of these 3 ybarra components: An expanded problem focused history; An expanded prob [id number] Office or 06/13/2016 other outpatient visit for the evaluation and management of an established patient, which requires at least 2 of these 3 ybarra components: A detailed history; A detailed examination; Medical d [id number] Office or 07/22/2016 other outpatient visit for the evaluation and management of an established patient, which requires at least 2 of these 3 ybarra components: A detailed history; A detailed examination; Medical d [id number] Office or 08/05/2016 other outpatient visit for the evaluation and management of an established patient, which requires at least 2 of these 3 ybarra components: An expanded problem focused history; An expanded prob 07483 Office or 08/20/2016 other outpatient visit for the evaluation and management of an established patient, which requires at least 2 of these 3 ybarra components: An expanded problem focused history; An expanded prob 28376 Office or 08/22/2016 other outpatient visit for the evaluation and management of an established patient, which requires at least 2 of these 3 ybarra components: A detailed history; A detailed examination; Medical d 50944 Office or 09/10/2016 other outpatient visit for the evaluation and management of an established patient, which requires at least 2 of these 3 ybarra components: An expanded problem focused history; An expanded prob 97462 12/12/2016 Electrocardiogram, routine ECG with at least 12 leads; with interpretation and report 62942 12/12/2016 Electrocardiogram, routine ECG with at least 12 leads; with interpretation and report Office or 12/12/2016 other outpatient visit for the evaluation and management of an established patient, which requires at least 2 of these 3 ybarra components: A detailed history; A detailed examination; Medical d Office or 12/26/2016 other outpatient visit for the evaluation and management of an established patient, which requires at least 2 of these 3 ybarra components: A detailed history; A detailed examination; Medical d Office or 02/17/2017 other outpatient visit for the evaluation and management of an established patient, which requires at least 2 of these 3 ybarra components: A detailed history; A detailed examination; Medical d Office or 06/03/2017 other outpatient visit for the evaluation and management of an established patient, which requires at least 2 of these 3 ybarra components: A detailed history; A detailed examination; Medical d 48810 Excision, 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, trunk, arms, or legs; excised diameter 1.1 to 2.0 cm 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 Level IV - 06/18/2017 Surgical pathology, gross and microscopic examination - spontaneous/missed Artery, biopsy Bone marrow, biopsy Bone exostosis Brain/meninges, other than for tumor resection Breast, 3049 Office Visit 06/27/2017 No Charge Office or 06/27/2017 other outpatient visit for the evaluation and management of an established patient, which requires at least 2 of these 3 ybarra components: An expanded problem focused history; An expanded prob 30051 Removal 07/01/2017 foreign body from external auditory canal; without general anesthesia Office or 07/01/2017 other outpatient visit for the evaluation and management of an established patient, which requires at least 2 of these 3 ybarra components: A detailed history; A detailed examination; Medical d 04640 09/15/2017 Polysomnography; age 6 years or older, sleep staging with 4 or more additional parameters of sleep, with initiation of continuous positive airway pressure therapy or bilevel ventilation, attended by a 95212 Office or 10/13/2017 other outpatient visit for the evaluation and management of an established patient, which requires at least 2 of these 3 ybarra components: An expanded problem focused history; An expanded prob Results Test Result Range Urinalysis with reflex microscopic - 11/14/16 16:53 Appearance Clear NA Bilirubin Negative NA Negative Blood Trace NA Negative Color Yellow NA Glucose, Urine Negative NA Negative Ketones Negative NA Negative Leukocyte Esterase Negative NA Negative Nitrites Negative NA Negative pH 5.5 NA 5.0-8.0 Protein Negative NA Negative Specific Sulphur 1.015 NA 1.003-1.030 UA Collection type Voided NA Urobilinogen 0.2 mg/dL <=1.0 CBC With Platelet and Differential - 12/12/16 09:38 Absolute Basophils 0.00 10*3/uL 0.00-0.30 Absolute Eosinophils 0.00 10*3/uL 0.00-0.60 Absolute Lymphocytes 3.04 10*3/uL 1.00-4.00 Absolute Monocytes 1.58 10*3/uL 0.20-0.80 Absolute Neutrophils 8.58 10*3/uL 2.50-7.00 Giant Platelets Occasional NA Neutrophils 58 % 50-70 Platelet Count 398 K/uL 150-400 RBC 4.90 10*6/uL 3.70-5.20 WBC 13.2 K/uL 5.0-10.0 Comprehensive Metabolic Panel (CMP) - 12/12/16 09:38 Albumin 4.2 g/dL 3.4-4.8 Alkaline Phosphatase 72 U/L 40-150 ALT (SGPT) 17 U/L 0-55 Anion Gap 9 NA 3-20 AST (SGOT) 20 U/L 5-34 Bilirubin Total 0.4 mg/dL 0.2-1.2 BUN 24 mg/dL 8-26 Calcium 9.2 mg/dL 8.4-10.2 Chloride 101 mEq/L 99-111 CO2 27 mEq/L 23-31 Creatinine 1.47 mg/dL 0.72-1.25 Globulin 2.5 g/dL 1.8-4.0 Glucose 109 mg/dL 70-99 Potassium 4.4 mEq/L 3.5-5.2 Protein 6.7 g/dL 6.0-7.6 Sodium 137 mEq/L 135-144 eGFR - 12/12/16 09:38 eGFR 46 mL/min >60 TSH with Reflex Free T4 - 12/12/16 09:38 TSH with Reflex Free T4 1.32 uIU/mL 0.35-4.94 Urinalysis with reflex microscopic - 12/12/16 10:58 Appearance Clear NA Bilirubin Negative NA Negative Blood Trace NA Negative Color Yellow NA Glucose, Urine Negative NA Negative Ketones Negative NA Negative Leukocyte Esterase Negative NA Negative Nitrites Negative NA Negative pH 5.5 NA 5.0-8.0 Protein Negative NA Negative Specific Sulphur 1.015 NA 1.003-1.030 UA Collection type Voided NA Urobilinogen 0.2 mg/dL <=1.0 CBC NO DIFF (HEMOGRAM) - 12/17/16 13:50 WBC - WHITE CELL COUNT 9.1 X10(3) 4.5-11.0 RBC - RED CELL COUNT 4.41 X10(6) 4.60-6.20 PLATELET COUNT 388 X10(3) 150-450 HEMOGLOBIN 9.7 g/dl 13.5-18.0 HEMATOCRIT 32.8 % 40.0-54.0 MCV 74.4 fL 80.0-96.0 MCH 22 pg 27-31 MCHC 29.6 % 32.0-36.0 TSH - 12/17/16 13:50 TSH 0.77 uIU/ml 0.36-3.74 LIPID PANEL - 12/17/16 13:50 CHOLESTEROL 118 mg/dl <=199 HDL CHOLESTEROL 41 mg/dl 40-60 TRIGLYCERIDES 83 mg/dl <=200 LDL, CALCULATED 60.4 mg/dl 0.0-99.0 VLDL, CALCULATED 16.6 mg/dl 0.0-130.0 CARDIAC RISK 3 CMP - COMPREHENSIVE METABOLIC PANEL - 12/17/16 13:50 GLUCOSE 95 mg/dl 74-106 BUN 19 mg/dl 7-18 CREATININE 1.43 mg/dl 0.70-1.30 eGFR 47 mL/min >60 SODIUM (NA) 137 mEq/L 136-146 POTASSIUM, BLOOD 4.3 mEq/L 3.5-5.1 CHLORIDE 100 mEq/L 98-107 CO2 (BICARBONATE) 28 mEq/L 21-32 CALCIUM 9.0 mg/dl 8.5-10.1 ALBUMIN, SERUM 3.3 g/dl 3.4-5.0 PROTEIN, TOTAL 6.8 g/dl 6.4-8.2 AST (SGOT) 22 U/L 15-37 ALT (SGPT) 18 U/L 16-63 ALK PHOS 64 U/L 46-116 BILIRUBIN, TOTAL 0.2 mg/dl 0.2-1.0 HOLD SPECIMEN FOR BLOOD BANK - 12/17/16 13:50 HOLD SPECIMEN FOR BLOOD BANK ARC BMP - BASIC METABOLIC PANEL - 12/18/16 06:30 GLUCOSE 105 mg/dl 74-106 BUN 17 mg/dl 7-18 CREATININE 1.36 mg/dl 0.70-1.30 eGFR 50 mL/min >60 SODIUM (NA) 139 mEq/L 136-146 POTASSIUM, BLOOD 4.1 mEq/L 3.5-5.1 CHLORIDE 103 mEq/L 98-107 CO2 (BICARBONATE) 28 mEq/L 21-32 CALCIUM 8.2 mg/dl 8.5-10.1 INR (PROTIME) - 12/18/16 06:30 INR 1.19 0.90-1.40 CBC WITH DIFF (REFLEX) - 12/18/16 06:30 WBC - WHITE CELL COUNT 6.4 X10(3) 4.5-11.0 RBC - RED CELL COUNT 4.26 X10(6) 4.60-6.20 PLATELET COUNT 328 X10(3) 150-450 HEMOGLOBIN 9.5 g/dl 13.5-18.0 HEMATOCRIT 31.6 % 40.0-54.0 MCV 74.2 fL 80.0-96.0 MCH 22 pg 27-31 MCHC 30.1 % 32.0-36.0 LYMPHS 16 % 20-45 MONOS 6 % 0-15 SEGS 73 % 40-80 BANDS 2 % 0-5 EOS 3 % 0-3 BASOS % METAS % MYELOS % PROMYELO % BLASTS % NRBC <=5 ANISO 2+ POIK MACROCYTIC MICROCYTIC HYPO POLY OVALO MANUAL DIFFERENTIAL HEADING M.DIFF REACT LYM % 0-1 RBC MORP WBC MORP PLT MORP Encounters ACCT No. Visit Discharge Status Pt. Type Provider Facility Loc./Unit Complaint Date/Time [id number] 11/03/2013 11/03/2013 CLS Out[facility]ie 10:25:00 23:59:59 nt [id number] 10/19/2013 10/19/2013 CLS Outpatie 10:02:00 23:59:59 nt [id number] 10/19/2013 10/19/2013 CLS Outpatie 09:12:00 23:59:59 nt [id number] 10/13/2013 10/13/2013 CLS Outpatie 14:30:00 23:59:59 nt [id number] 09/27/2013 09/27/2013 CLS Outpatie 13:54:00 23:59:59 nt [id number] 09/27/2013 09/27/2013 CLS Outpatie 10:59:00 23:59:59 nt [id number] 09/17/2013 09/17/2013 CLS Outpatie 14:35:00 23:59:59 nt [id number] 09/16/2013 09/16/2013 CLS Outpatie 14:23:00 23:59:59 nt [id number] 08/17/2013 08/17/2013 CLS Outpatie 09:48:00 23:59:59 nt [id number] 06/28/2013 06/28/2013 CLS Outpatie 13:19:00 23:59:59 nt [id number] 12/17/2016 12/18/2016 DIS [place], [place] 110 CP 12:44:00 14:15:00 [facility] [id number] 11/28/2015 11/29/2015 [place], [place] 110 HX CAD 09:19:00 13:00:00 [facility] [id number] 07/17/2015 07/19/2015 [place], [place] 110 CHF 11:13:00 13:51:00 [facility] [id number] 06/04/2017 Document [id number] 05:18:12 Registra tion [id number] 05/28/2017 Document [id number] 05:17:39 Registra tion [id number] 02/20/2017 Document [id number] 05:16:09 Registra tion [id number] 02/18/2017 Document [id number] 05:17:03 Registra tion [id number] 10/15/2016 Document [id number] 05:17:44 Registra tion [id number] 08/30/2016 Document [id number] 05:16:31 Registra tion [id number] 08/23/2016 Document [id number] 05:15:46 Registra tion 2016072315/2016 Document [id number] 05:17:22 Registra tion [id number] 06/25/2016 Document [id number] 05:19:20 Registra tion [id number] 06/07/2016 Document [id number] 05:16:58 Registra tion [id number] 05/23/2016 Document [id number] 05:18:34 Registra tion 2016050905/09/2016 Document [id number] 05:17:00 Registra tion [id number] 05/02/2016 Document [id number] 05:17:13 Registra tion 2016041704/17/2016 Document [id number] 05:16:57 Registra tion [id number] 03/01/2016 Document [id number] 05:16:00 Registra tion 2016022802/28/2016 Document [id number] 05:17:19 Registra tion 2016020802/08/2016 Document [id number] 05:17:10 Registra tion 2016011601/16/2016 Document [id number] 05:18:10 Registra tion 2016011101/11/2016 Document [id number] 05:18:55 Registra tion [id number] 12/21/2015 Document [id number] 05:18:10 Registra tion [id number] 12/20/2015 Document [id number] 05:18:07 Registra tion [id number] 12/05/2015 Document [id number] 05:18:02 Registra tion [id number] 11/25/2015 Document [id number] 05:17:14 Registra tion [id number] 10/21/2015 Document [id number] 05:17:03 Registra tion [id number] 10/20/2015 Document [id number] 05:16:12 Registra tion 2015101010/10/2015 Document [id number] 05:17:29 Registra tion [id number] 07/28/2015 Document [id number] 05:16:52 Registra tion 2015070707/07/2015 Document [id number] 05:17:18 Registra tion 2015062806/28/2015 Document [id number] 14:28:35 Registra tion 2015062806/28/2015 Document [id number] 14:07:40 Registra tion 2015062806/28/2015 Document [id number] 13:15:19 Registra tion [id number] 06/28/2015 Document [id number] 13:06:39 Registra tion 2015062806/28/2015 Document [id number] 12:45:40 Registra tion 2015062806/28/2015 Document [id number] 12:30:36 Registra tion 2015062806/28/2015 Document [id number] 12:16:31 Registra tion 2015062806/28/2015 Document [id number] 11:55:44 Registra tion 2015062806/28/2015 Document [id number] 11:43:15 Registra tion 2015062806/28/2015 Document [id number] 11:17:07 Registra tion 2015062806/28/2015 Document [id number] 11:11:04 Registra tion 2015062806/28/2015 Document [id number] 10:56:59 Registra tion 2015062806/28/2015 Document [id number] 10:51:11 Registra tion 2015062806/28/2015 Document [id number] 10:45:59 Registra tion 2015062806/28/2015 Document [id number] 10:40:56 Registra tion 2015062806/28/2015 Document [id number] 10:23:08 Registra tion 2015062806/28/2015 Document [id number] 09:59:55 Registra tion 2015062806/28/2015 Document [id number] 09:54:35 Registra tion [id number] 06/28/2015 Document [id number] 09:50:02 Registra tion 2015062806/28/2015 Document [id number] 09:33:29 Registra tion 2015062806/28/2015 Document [id number] 09:15:36 Registra tion [id number] 12/29/2015 12/29/2015 DIS Outpatie 11:21:07 11:21:07 nt [id number] 12/03/2017 12/03/2017 DIS Outpatie ANTONY Pan HERNIA MORE 4621 14:46:00 23:59:00 HUMA lewis MD Surgical PAINFUL [facility] [id number] 09/10/2017 09/10/2017 DIS Outpatie ANTONY Pan inguinal 9458 12:42:00 23:59:00 HUMA lewis MD Surgical Hernia FACS C[facility] Worsening [id number] 05/13/2017 05/13/2017 DIS Outpatie KALPANA Pan Lt Shoulder 9330 12:41:00 13:41:00 nt JOSELITO DUARTE [facility] [id number] 12/19/2017 ACT Emergenc ANASTASIIA Pan "raising 5460 16:01:00 y GENNA DUARTE Medical " [facility] heartbeat & CP [id number] 09/10/2017 Document 6603 14:33:00 Registra tion [id number] 10/25/2013 Document 330 09:00:00 Registra tion [id number] 09/27/2013 Document 965 09:00:00 Registra tion [id number] 11/17/2017 11/17/2017 DIS Outpatie Prosper, Via [facility] 4 week 8287 10:59:00 23:59:00 nt Huma Dsouza CP download not Clinic wireless per Dr Cheng [id number] 10/13/2017 10/13/2017 DIS Outpatie Prosper, Via [facility] Ref by 7136 13:09:00 23:59:00 nt Huma Dsouza CP Faby PSG Clinic [facility] 09/15/17 [id number] 09/15/2017 09/15/2017 DIS Outpatie Roslyn, Via [facility] Sleep PSG- BRING 7088 23:42:00 23:59:00 nt Faby Dsuoza CP MASK-APRVD Clinic [id number] 08/19/2017 08/19/2017 DIS Outpatie [place], Via [facility] Sleep Mask fit 7225 15:25:00 23:59:00 nt Faby Dsouza CP Clinic [id number] 08/19/2017 08/19/2017 DIS Outpatie Via [facility] Sleep YRLY CPAP CK 4126 13:41:00 23:59:00 nt Lianna MACHADO Clinic [id number] 07/01/2017 07/01/2017 DIS Outpatie Teck, Via [facility] New FM lump on lower 5430 08:05:00 23:59:00 nt Tang Dsouza abd Clinic [id number] 06/27/2017 06/27/2017 DIS Outpatie Teck, Via [facility] New FM 10 61 09:33:00 23:59:00 nt Tang gonzales Clinic stuture removal [id number] 06/18/2017 06/18/2017 DIS Outpatie Padilal, Via [facility] FC Lab PATHOLOGY 1884 14:02:00 23:59:00 nt Lorenza John Lianna Clinic [id number] 06/17/2017 06/17/2017 DIS Outpatie Teck, Via [facility] New FM Lesion 8286 09:12:00 23:59:00 nt Tang Dsouza removal x2 Clinic [id number] 06/03/2017 06/03/2017 DIS Outpatie Teck, Via [facility] New FM SORE ON RT 6108 08:22:00 23:59:00 nt Tang Dsouza ARM, Clinic MEDICATION CHANGE [id number] 02/17/2017 02/17/2017 CLS Outpatie Teck, Via [facility] New FM spots on 3044 08:01:00 23:59:59 nt Tang Dsouza chest Clinic [id number] 12/26/2016 12/26/2016 DIS Outpatie Teck, Via [facility] New FM 2 wk anemia 2386 08:38:00 23:59:00 joshua Dsouza follow up Clinic [id number] 12/12/2016 12/12/2016 DIS Outpatie Teck, Via [facility] New FM A-fib? , 7594 08:32:00 23:59:00 joshua Dsouza physician Clinic requests EKG [id number] 12/12/2016 12/12/2016 DIS Outpatie Teck, Via [facility] Mur sob R06.02 9134 00:01:00 23:59:00 joshua Dsouza Card Clinic [id number] 11/15/2016 11/15/2016 DIS Outpatie Teck, Via [facility] New FM difficulty 4883 13:39:00 23:59:00 joshua Dsouza walking, Clinic weakness in both legs [id number] 09/10/2016 09/10/2016 DIS Outpatie Teck, Via [facility] New FM acc fell 0884 13:13:00 23:59:00 joshua Dsouza 08/31 and hit Clinic left hip off end table and has warm k [id number] 08/29/2016 08/29/2016 DIS Outpatie Teck, Via [facility] New FM TCPA FEVER 8114 10:53:00 23:59:00 nt Tang Dsouza AND COUGH Clinic [id number] 08/22/2016 08/22/2016 DIS Outpatie Teck, Via [facility] New FM bad cough. 1287 13:50:00 23:59:00 nt Tang Prasadi chest Clinic congestion [id number] 08/20/2016 08/20/2016 DIS Outpatie Prosper, Via C Sleep 6 mo fu 3963 14:35:00 23:59:00 nt Huma Dsouza CP compliance Clinic [id number] 08/05/2016 08/05/2016 DIS Outpatie Teck, Via [facility] New FM 2 week breast 1957 14:23:00 23:59:00 nt Tang Lianna tenderness Clinic [id number] 07/22/2016 07/22/2016 DIS Outpatie Teck, Via [facility] New FM Breast 9218 14:42:00 23:59:00 nt Tang Lianna discomfort Clinic [id number] 06/13/2016 06/13/2016 DIS Outpatie Teck, Via [facility] New FM 1 week post 4778 10:33:00 23:59:00 nt Tang Lianna surgical Clinic wound care [id number] 06/06/2016 06/06/2016 DIS Outpatie Teck, Via [facility] New FM REMOVE 8024 14:38:00 23:59:00 nt Tang Prasadi BANDAGE FROM Clinic EAR [id number] 06/03/2016 06/03/2016 DIS Outpatie Teck, Via [facility] New FM suture 5630 13:02:00 23:59:00 nt Tang Lianna removal Clinic [id number] 05/27/2016 05/27/2016 DIS Outpatie Teck, Via [facility] New FM left ear 9123 10:50:00 23:59:00 nt Tang Lianna recheck Clinic [id number] 05/24/2016 05/24/2016 DIS Outpatie Teck, Via [facility] New FM post- op 6499 14:59:00 23:59:00 nt Tang Lianna recheck left Clinic ear [id number] 05/22/2016 05/22/2016 DIS Outpatie Teck, Via [facility] New FM remove 9669 07:52:00 23:59:00 nt Tang Lianna excision on Clinic ear [id number] 05/07/2016 05/07/2016 DIS Outpatie Teck, Via [facility] New FM toe nail 3062 13:42:00 23:59:00 nt Tang Lianna removal Clinic follow up [id number] 04/25/2016 04/25/2016 DIS Outpatie Teck, Via [facility] New FM post toe nail 9428 16:05:00 23:59:00 nt Tang Lianna removal Clinic [id number] 04/18/2016 04/18/2016 DIS Outpatie Teck, Via [facility] New FM TCPA Toe nail 9123 15:09:00 23:59:00 nt Tang Lianna removal Clinic follow up [id number] 04/16/2016 04/16/2016 DIS Outpatie Teck, Via [facility] New FM CHECK TOE 5138 08:18:00 23:59:00 nt Tang Lianna NAILS Clinic [id number] 02/29/2016 02/29/2016 CLS Outpatie Via C Sleep Recheck cpap 6041 23:59:00 23:59:59 nt Lianna CP Clinic [id number] 02/29/2016 02/29/2016 DIS Outpatie Roslyn, Via [facility] Sleep Work with ASV 4373 15:04:00 23:59:00 nt Faby Dsouza CP Clinic [id number] 02/27/2016 02/27/2016 DIS Outpatie Teck, Via C New FM confused 8033 09:25:00 23:59:00 nt Tang Prasadi disoriented Clinic stumbles [id number] 02/07/2016 02/07/2016 DIS Outpatie Teck, Via C New FM POSS 7939 13:54:00 23:59:00 nt Tang Dsouza INFECTION IN Clinic TOE [id number] 01/15/2016 01/15/2016 DIS Outpatie Teck, Via [facility] New FM 5 day 6281 09:49:00 23:59:00 nt Tang Prasadi recheck Clinic asthma [id number] 01/10/2016 01/10/2016 DIS Outpatie Teck, Via [facility] New FM HAVING RESP 8590 13:54:00 23:59:00 nt Tang Prasadi ISSUES STILL Clinic [id number] 12/20/2015 12/20/2015 CLS Outpatie Teck, Via [facility] New FM red patchy 4177 14:58:00 23:59:59 nt Tang Dsouza rash on legs Clinic [id number] 12/05/2015 12/05/2015 DIS Outpatie Teck, Via [facility] New FM FU AFTER 7917 10:49:00 23:59:00 nt Tang Dsozua HEART CATH Clinic PROCEDURE [id number] 11/24/2015 11/24/2015 DIS Outpatie Teck, Via [facility] New FM lab results 1750 13:32:00 23:59:00 nt Tang Lianna Clinic [id number] 10/19/2015 10/19/2015 DIS Outpatie Teck, Via [facility] New FM knot below L 5012 15:26:00 23:59:00 nt Tang Dsouza knee Clinic [id number] 10/09/2015 10/09/2015 CLS Outpatie Teck, Via [facility] New FM infected toe 2732 10:22:00 23:59:59 nt Tang Lianna Clinic [id number] 08/02/2015 08/02/2015 DIS Outpatie Teck, Via [facility] New FM FU FROM 07 27 2017 09:23:00 23:59:00 nt Tang Dsouza APPT ABD Clinic CRAMPING [id number] 07/27/2015 07/27/2015 DIS Outpatie Teck, Via [facility] New FM FU FROM 8257 10:17:00 23:59:00 joshua Dsouza [facility] HOSPITAL SOB AND DIARRHEA SX [id number] 07/11/2015 07/11/2015 DIS Outpatie Teck, Via [facility] New FM STILL HAVING 8062 13:41:00 23:59:00 nt Tang Dsouza BREATHING Clinic PROBLEMS [id number] 07/06/2015 07/06/2015 DIS Outpatie Teck, Via [facility] New FM BREATHING 7266 14:27:00 23:59:00 nt Tang Dsouza ISSUES FOR Clinic LAST COUPLE OF DAYS [id number] 05/17/2015 05/17/2015 DIS Outpatie Teck, Via [facility] New FM UTI SX 7631 13:45:00 23:59:00 joshua Dsouza BURNING AND Clinic TROUBLE URINATING [id number] 03/20/2015 03/20/2015 DIS Outpatie [place], Via [facility] New 3 month 6304 14:16:00 23:59:00 nt Chris Dsouza Uro recheck Clinic [id number] 03/20/2015 03/20/2015 DIS Outpatie Teck, Via [facility] New FM 3mth rck htn 6625 14:14:00 23:59:00 joshua Dsouza med check Clinic [id number] 03/06/2015 03/06/2015 DIS Outpatie Teck, Via [facility] New FM Nausea med 9771 10:54:00 23:59:00 nt [facility] Clinic [id number] 02/27/2015 02/27/2015 DIS Outpatie Teck, Via [facility] New FM FU AFTER STAY 0435 09:57:00 23:59:00 nt [facility] LUNG XRAY PER Clinic DR HARRISON [id number] 10/12/2014 10/12/2014 DIS Outpatie Teck, Via [facility] New FM MED CHECK 5170 08:41:00 23:59:00 nt [facility] Clinic [id number] 09/20/2014 09/20/2014 DIS Outpatie Teck, Via C New FM BM 4608 15:13:00 23:59:00 nt [facility] difficulties Clinic [id number] 08/29/2014 08/29/2014 DIS Outpatie Teck, Via [facility] New FM still having 9099 11:01:00 23:59:00 nt [facility] hemmoriod Clinic pain [id number] 08/23/2014 08/23/2014 DIS Outpatie Teck, Via C New FM HEMORROHOIDS 2174 13:51:00 23:59:00 nt [facility] Clinic [id number] 08/15/2014 08/15/2014 DIS Outpatie Teck, Via C New FM bronchitis 3739 13:06:00 23:59:00 nt [facility] worse Clinic [id number] 08/08/2014 08/08/2014 DIS Outpatie Teck, Via [facility] New cold sx, 9641 09:58:00 23:59:00 nt [facility] chest Clinic congestion 2017062806/28/2017 Document [id number] 05:18:38 Registra tion 2017062806/28/2017 Document [id number] 05:18:37 Registra tion [id number] 06/10/2017 Document [id number] 05:20:41 Registra tion [id number] 06/04/2017 Document [id number] 05:18:12 Registra tion [id number] 05/28/2017 Document [id number] 05:17:39 Registra tion [id number] 01/24/2015 Document [id number] 10:24:00 Registra tion [id number] 01/17/2015 Document [id number] 08:41:00 Registra tion [id number] 12/19/2014 Document [id number] 23:59:00 Registra tion [id number] 12/19/2014 Document [id number] 15:34:00 Registra tion [id number] 12/01/2014 Document [id number] 09:40:00 Registra tion [id number] 10/27/2014 Document [id number] 09:23:00 Registra tion
--- NOTE | 2017-12-19 16:37 | XRay Report ---
Indication: chest discomfort XR chest 1V: Comparison: Single view chest 10/29/2015 Technique: Portable upright chest Findings: Patient still shows a prominent heart size with prior coronary artery bypass grafting and a permanent pacemaker. No marked change in this appearance is seen on the current study. Mild chronic lung changes are seen but again no acute cardiopulmonary findings are seen. No acute bony findings are seen although patient shows mild changes in the mid and lower thoracic region. Impression: Similar appearance the previous study with prior cardiac surgery and a permanent pacemaker in position without significant cardiac decompensation. .
[2017-12-19] MEDS: SALINE FLUSH 10ml SYRINGE IVF PRN ×2 (16:45→18:05)
[2017-12-19] MEDS ORDERED: LABETALOL 100mg/20ml INJECTION IVP ONE (17:23)
[2017-12-19] MEDS ORDERED: AMIODARONE 150mg/3ml INJECTION IV ONE (17:56)
[2017-12-19] MEDS ORDERED: LORazepam 0.5 MG TABLET PO PRN (20:44)
[2017-12-19] MEDS ORDERED: PANTOPRAZOLE 40 MG INJECTION IVP ONE (20:44)
[2017-12-19] MEDS ORDERED: ONDANSETRON 4 MG/2 ML INJECTION IVP PRN (20:44)
[2017-12-19] MEDS ORDERED: ROSUVASTATIN 5 MG TABLET PO SCH (20:44)
[2017-12-19] MEDS ORDERED: ALBUTEROL/IPRATROPIUM 2.5mg-0.5mg/3ml NEB AEROSOL PRN (20:44)
[2017-12-19] MEDS ORDERED: RIVAROXABAN 20 MG TABLET PO SCH (20:44)
[2017-12-19] MEDS ORDERED: AMIODARONE 450 MG in NS 500ml 250 ML IV SCH (20:44)
[2017-12-19 20:51] VITALS: BMI 31.4
[2017-12-19] MEDS ORDERED: TAMSULOSIN 0.4 MG CAPSULE PO SCH (21:00)
--- NOTE | 2017-12-19 22:04 | History & Physical Report ---
History of Present Illness Date: 12/20/17 Chief complaint: heart is fast HPI: This is a pleasant 82 y/o male with a history of paroxysmal atrial fibrillation. The patient is preparing for an inguinal hernia repair on Friday and had his coumadin held and was switched to xarelto. The patient woke up this morning not feeling well. About 1 pm he had onset of rapid heart rate. During this period of time of rapid heart rate he complained of chest pressure with sx radiating to his left jaw and neck. When he presented to the ED his rate was initially treated with verapamil IV 5mg and then 10mg without effect. He was subsequently given labetalol which has helped. The patient's pain in his chest resolved with rate control. The pateint's initial troponin fortunately after over 2 hours or more of chest pain was completly negative with a non ischemic EKG. The patient was discussed with his primary control chemist out of [place] who r/c admission on amio gtt. The patient preferred to stay local. Given this request our local [employer] graciously agreed to participate in the care of this patient. 150 mg of amiodarone was started in the ED and he is admitted to the ICU for amio gtt. Review of Systems Review of systems: no headache, no fever, chills or sweats, no sore throat, no congestion, no new meds other than the new anticogulant. heart palpitations and increased short of breath is noted. chest pressure is described above, mild nausea this am without emesisi. with the worse of his pain he had diaphoresis. This has since resolved. patient had 3 bowel movements today, loose, no blood, no focal neuro complaints. no skin rashes, 12 point ROS otherwise negative except for outlined above. 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 Quad bypass 2002,. Kidney Stones removed 1973,. Numerous stents,. Rt Shoulder Surgery,. Gallbladder, Family History: Family History (Last Reviewed 12/03/17 @ 14:51 by Shirley J Nicholson, RMA) Mother Arthritis Cancer of thyroid High blood pressure Father Dementia Family History: As Above - Social History Smoking status: Never smoker Medications Home Medications Medication Instructions Recorded Confirmed Type RX: Nitroglycerin 0.4 mg SL Q5MIN PRN #0 10/03/12 12/19/17 History RX: Dexlansoprazole [Dexilant] 60 mg PO DAILY #0 03/16/14 12/19/17 History RX: Albuterol Sulfate [Proair Hfa] 1 puff INH Q4H PRN #0 10/29/15 12/19/17 History RX: Warfarin Sodium 2 mg PO DAILY #0 10/29/15 12/19/17 History Acetaminophen/Diphenhydramine 1 tab PO HS PRN 12/19/17 12/19/17 History [Acetaminophen-Diphenhyd 500-25] Aspirin [Ecotrin] 81 mg PO DAILY 12/19/17 12/19/17 History Clopidogrel Bisulfate [Clopidogrel] 75 mg PO DAILY 12/19/17 12/19/17 History Digoxin [Digoxin] 125 mcg PO DAILY 12/19/17 12/19/17 History Ferrous Sulfate [Iron] 325 mg PO DAILY 12/19/17 12/19/17 History Fluticasone/Vilanterol Inhaler 1 puff INH DAILY 12/19/17 12/19/17 History [Breo Ellipta 100-25 mcg Inhaler] Levomilnacipran [Fetzima] 40 mg PO HS 12/19/17 12/19/17 History Metoprolol Succinate [Toprol Xl] 50 mg PO HS 12/19/17 12/19/17 History Montelukast [Singulair] 10 mg PO DAILY PRN 12/19/17 12/19/17 History RX: Allopurinol [Zyloprim] 100 mg PO DAILY 12/19/17 12/19/17 History RX: Furosemide [Lasix 40 mg Tab] 40 mg PO DAILY 12/19/17 12/19/17 History RX: LORazepam [Ativan] 0.5 mg PO TID PRN 12/19/17 12/19/17 History RX: Nitroglycerin Patch [Nitro-Dur 1 patch TD DAILY 12/19/17 12/19/17 History 0.2 mg/Hr] RX: Potassium Chloride 20 meq PO DAILY 12/19/17 12/19/17 History RX: Tamsulosin [Flomax] 0.4 mg PO HS 12/19/17 12/19/17 History Rivaroxaban [Xarelto] 20 mg PO O 12/19/17 12/19/17 History Rosuvastatin [Crestor] 5 mg PO Q2D 12/19/17 12/19/17 History Spironolactone [Aldactone] 25 mg PO DAILY 12/19/17 12/19/17 History Verapamil HCl [Verapamil ER] 120 mg PO DAILY 12/19/17 12/19/17 History Allergies Allergy/AdvReac Type Severity Reaction Status Date / Time No Known Allergies Allergy Verified 12/19/17 16:16 Exam Vital Signs: Temperature 98.6 F 12/19/17 16:10 Pulse Rate 104 H 12/19/17 20:15 Respiratory Rate 24 12/19/17 20:00 Blood Pressure 109/58 12/19/17 20:15 Pulse Oximetry 94 12/19/17 20:15 Telemetry Rhythm: A-fib Height/Weight/BMI: Height 1.65 m Weight 85.7 kg Body Mass Index 31.4 - Constitutional Present: mild distress, well nourished, well developed, average body habitus, cooperative Comments: very hard of hearing - Routine HEENT Exam Head: Present: normocephalic, atraumatic Eye: Present: PERRL ENT: Present: mucous membranes dry - Routine Neck Exam Present: supple, full ROM - Routine Respiratory Exam Present: CTA bilaterally - Routine Cardiovascular Exam Present: irregularly irregular - Routine Abdominal Exam Present: soft, non distended, non tender - Routine Extremities Exam Present: no edema, full ROM - Routine Back/Spine/Pelvis Exam Back/Spine: Present: full ROM - Routine Skin Exam Present: intact - Routine Neurological Exam Present: alert, oriented X3, moving all extremities, normal tone, normal speech - Routine Psychiatric Exam Present: normal thought process Results - Labs CBC & Chem 7: 12/19/17 16:50 12/19/17 16:50 Labs: labs reviewed and will be discussed below CXR with PPM otherwise no acute process EKG irreg, irreg, atrial fib, non ischemic Assessment and Plan (1) Atrial fibrillation with RVR Current visit: Yes Status: Acute (2) Atrial fibrillation Current visit: Yes Status: Acute (3) Inguinal hernia Current visit: Yes Status: Acute (4) Chest pain Current visit: Yes Status: Acute (5) Coronary artery disease Current visit: Yes Status: Acute (6) COPD (chronic obstructive pulmonary disease) Current visit: Yes Status: Acute (7) Anxiety and depression Current visit: Yes Status: Acute Assessment and Plan: 1. atrial fib with rvr acute POA: admit to ICU, rule out, cardiology cx for local caridologist placed, see ed note. very much appreciate control chemist willingness to help. start amio gtt. with hx of lung disease not perfect solution. has had a history of 2 previous cardioversions without conversion. currently has PPM . Defer to cardiology. continue anticoagulation. Hemodynamically stable. with amio, hold ca cha, b cha, continue dig. 2. hx of inguinal hernia chronic POA: had planned on surgery Friday. Coumadin held, xarelto started. On hold until medically stable 3. COPD chronic POA: willl utilize duoneb prn. no steroids indicated. not exacerbated 4. CAD chronic POA: patient had clasic anginal sx with rate. surprised trop did not bump. rule out and monitor on tele. holding b cha acutely, anticoagulated, continue aspirin. on Statin DVT Prophylaxis: SCD's, Eliquis GI Prophylaxis: Protonix Resuscitation Status: Full Code - Time spent with patient Time with patient PN: 35 minutes - Physician Narrative Physician: Jesica Akers MD Narrative: Date: 12/20/17 Time: 1030 Please see note dictated 12/20/17. Hospital Course Summary Disclaimer: The visit summary below is not to be considered part of the above Progress Note.
[2017-12-19] MEDS ORDERED: APAP/DIPHENHYDRAMINE 500 MG/25 MG TABLET PO PRN (22:13)
--- NOTE | 2017-12-19 22:39 | Cardiology Consult Note ---
<Katerin Calero - Last Filed: 12/20/17 15:20> History of Present Illness Consult date: 12/20/17 Requesting physician: Jesica Akers Consult reason: chest pain, atrial fibrillation Chief complaint: racing heartbeat History of present illness: Phuc is a 82 year old male with a history of paroxysmal atrial fibrillation who is preparing for an inguinal hernia repair on Friday. However he woke up yesterday morning not feeling well and around 1 pm he had onset of rapid heart rate and complained of chest pressure with symptoms radiating to his left jaw and neck. He presented to the ED and was treated with verapamil IV 5mg and then 10mg without effect. He was subsequently given labetalol which has helped. His chest pain resolved with rate control. His initial troponin after over 2 hours or more of chest pain was negative with a non ischemic EKG. He was discussed with his primary roads and parking lots sweeper operator out of [place] who recommended admission on Amiodarone gtt, however he preferred to stay local. Dr. Huff was contacted and agreed further evaluate and treat him and he is admitted to the CCU. Review of Systems - Constitutional Constitutional: Absent: chills, fatigue, fever(s) - EENMT Eyes: Absent: change in vision Balance: Absent: vertigo Mouth/Throat: Absent: sore throat - Cardiovascular Cardiovascular: Present: chest pain, palpitations. Absent: syncope, dyspnea on exertion, orthopnea Vascular: Absent: pedal edema - Respiratory Respiratory: Absent: cough, dyspnea, dyspnea on exertion - Gastrointestinal Gastrointestinal: Absent: abdominal pain, diarrhea, nausea, vomiting - Genitourinary Genitourinary: Absent: dysuria - Integumentary/Breasts Integumentary: Absent: rash - Neurological Neurological: Absent: dizziness - Endocrine Endocrine: Present: palpitations PFSH Patient Stated Medical History Transient Ischemic Attacks ( Yes TIA) Cataracts Yes: both eyes Hearing Loss Yes Cardiac Arrhythmia Yes Coronary Artery Disease Yes Hypertension Yes Asthma Yes Other Respiratory Yes: shira christianson breathing disorder Ulcer Yes Hx Benign Prostatic Yes Hyperplasia Hx Urinary Tract Infection Yes Osteoarthritis Yes Clostridium Difficile Yes Sepsis Yes: UTI Blood Transfusions Yes Depression Yes Clinic Medical History (Last Reviewed 12/03/17 @ 14:51 by TAVON Odell) Atrial fibrillation (Acute Medical) CAD (coronary artery disease) (Acute Medical) Cataract (Acute Medical) Colon polyp (Acute Medical) High blood pressure (Acute Medical) IBD (inflammatory bowel disease) (Acute Medical) Pacemaker (Acute Medical) Anxiety (Chronic Medical) Asthma (Chronic Medical) Bronchitis (Chronic Medical) Depression (Chronic Medical) Stomach ulcer (Chronic Medical) Shira-Christianson breathing disorder (Resolved Medical) Stroke (Resolved Medical) Surgical History: Tonsillectomy 1953 Jessica [place],. Quad bypass 2002,. Kidney Stones removed 1973,. Numerous stents,. Rt Shoulder Surgery,. Gallbladder, Family History: Family History (Last Reviewed 12/03/17 @ 14:51 by Shirley Nicholson Kristel) Mother Arthritis Cancer of thyroid High blood pressure Father Dementia - Social History Smoking status: Never smoker Substance use type: does not use Alcohol intake frequency: does not drink Household members: spouse Current occupational status: retired Medications Home Medications Medication Instructions Recorded Confirmed Type Nitroglycerin 0.4 mg SL Q5MIN PRN #0 10/03/12 12/19/17 History Dexlansoprazole [Dexilant] 60 mg PO DAILY #0 03/16/14 12/19/17 History Albuterol Sulfate [Proair Hfa] 1 puff INH Q4H PRN #0 10/29/15 12/19/17 History Acetaminophen/Diphenhydramine 1 tab PO HS PRN 12/19/17 12/19/17 History [Acetaminophen-Diphenhyd 500-25] Allopurinol [Zyloprim] 100 mg PO DAILY 12/19/17 12/19/17 History Aspirin [Ecotrin] 81 mg PO DAILY 12/19/17 12/19/17 History Clopidogrel Bisulfate [Clopidogrel] 75 mg PO DAILY 12/19/17 12/19/17 History Digoxin 125 mcg PO DAILY 12/19/17 12/19/17 History Ferrous Sulfate [Iron] 325 mg PO DAILY 12/19/17 12/19/17 History Fluticasone/Vilanterol Inhaler 1 puff INH DAILY 12/19/17 12/19/17 History [Breo Ellipta 100-25 mcg Inhaler] Furosemide [Lasix 40 mg Tab] 40 mg PO DAILY 12/19/17 12/19/17 History LORazepam [Ativan] 0.5 mg PO TID PRN 12/19/17 12/19/17 History Levomilnacipran [Fetzima] 40 mg PO HS 12/19/17 12/19/17 History Metoprolol Succinate [Toprol Xl] 50 mg PO HS 12/19/17 12/19/17 History Montelukast [Singulair] 10 mg PO DAILY PRN 12/19/17 12/19/17 History Nitroglycerin Patch [Nitro-Dur 0.2 1 patch TD DAILY 12/19/17 12/19/17 History mg/Hr] Potassium Chloride 20 meq PO DAILY 12/19/17 12/19/17 History Rosuvastatin [Crestor] 5 mg PO Q2D 12/19/17 12/19/17 History Spironolactone [Aldactone] 25 mg PO DAILY 12/19/17 12/19/17 History Tamsulosin [Flomax] 0.4 mg PO HS 12/19/17 12/19/17 History Verapamil HCl [Verapamil ER] 120 mg PO DAILY 12/19/17 12/19/17 History Amiodarone [Pacerone] 200 mg PO DAILY #30 tab 12/20/17 Rx Rivaroxaban [Xarelto] 20 mg PO WS #0 12/20/17 12/19/17 Rx Allergies Allergy/AdvReac Type Severity Reaction Status Date / Time No Known Allergies Allergy Verified 12/19/17 16:16 Exam Vital signs: Temperature 98.6 F 12/19/17 16:10 Pulse Rate 110 H 12/19/17 20:44 Respiratory Rate 24 12/19/17 20:00 Blood Pressure 109/58 12/19/17 20:15 Pulse Oximetry 94 12/19/17 20:15 - Constitutional no acute distress, well nourished, cooperative - Routine HEENT Exam Head: Present: normocephalic ENT: Present: mucous membranes moist - Routine Neck Exam Absent: JVD, carotid bruit - Routine Chest/Breast/Axilla Exam Chest wall: Absent: tenderness - Routine Respiratory Exam Present: CTA bilaterally. Absent: rales, wheezes - Routine Cardiovascular Exam Present: RRR. Absent: JVD - Routine Abdominal Exam Present: soft, normoactive bowel sounds - Routine Extremities Exam Present: no edema - Routine Skin Exam Present: intact, dry, warm - Routine Neurological Exam Present: alert, oriented X3 - Routine Psychiatric Exam Present: normal affect, normal thought process Results 12/19/17 16:50 12/19/17 16:50 Intake and Output 12/19/17 12/19/17 12/19/17 06:59 14:59 22:59 Other: Weight 188 lb 14.978 oz Patient Weight 12/20/17 06:59 Weight 188 lb 14.978 oz Abnormal Lab Results 12/19/17 12/19/17 12/19/17 16:50 16:50 16:50 WBC 9.2 RBC 5.20 Hgb 16.3 Hct 48.5 MCV 93.3 MCH 31.3 MCHC 33.6 RDW Std Deviation 44.3 Plt Count 218 MPV 9.4 Immature Gran % (Auto) 0.3 Neut % (Auto) 61.7 Lymph % (Auto) 22.2 L [place] % (Auto) 13.3 H Eos % (Auto) 2.2 Baso % (Auto) 0.3 Neut # (Auto) 5.7 Lymph # (Auto) 2.1 [place]kin # (Auto) 1.2 H Eos # (Auto) 0.2 Baso # (Auto) 0.0 Abs Immat Gran (auto) 0.03 INR 1.16 Turbidity < 20 Sodium 143 Potassium 4.2 Chloride 102 Carbon Dioxide 27 Anion Gap 14 BUN 21.0 H Creatinine 1.1 GFR Calculation 64 BUN/Creatinine Ratio 19 Glucose 137 H Calculated Osmolality 280 Calcium 9.4 Magnesium 2.1 Total Bilirubin 0.30 Icterus Index < 2 AST 29 ALT 24 Alkaline Phosphatase 63 Troponin I < 0.012 NT-Pro-B Natriuret Pep 1940 H Total Protein 7.0 Albumin 4.4 Globulin 2.6 Albumin/Globulin Ratio 1.7 TSH 1.11 Specimen Hemolysis 21 Digoxin 1.4 12/19/17 21:07 WBC RBC Hgb Hct MCV MCH MCHC RDW Std Deviation Plt Count MPV Immature Gran % (Auto) Neut % (Auto) Lymph % (Auto) [place]kin % (Auto) Eos % (Auto) Baso % (Auto) Neut # (Auto) Lymph # (Auto) Pitkin # (Auto) Eos # (Auto) Baso # (Auto) Abs Immat Gran (auto) INR Turbidity Sodium Potassium Chloride Carbon Dioxide Anion Gap BUN Creatinine GFR Calculation BUN/Creatinine Ratio Glucose Calculated Osmolality Calcium Magnesium 2.2 Total Bilirubin Icterus Index AST ALT Alkaline Phosphatase Troponin I 0.179 H D NT-Pro-B Natriuret Pep Total Protein Albumin Globulin Albumin/Globulin Ratio TSH 1.88 Specimen Hemolysis < 15 Digoxin 1.1 - Imaging and Cardiology Imaging & Cardiology Narrative: Date of Exam: 12/19/17 Ordering Provider: Antonio Acuña MD Type of Exam(s): XR chest 1V Reason for Exam(s): chest discomfort Indication: chest discomfort XR chest 1V: Comparison: Single view chest 10/29/2015 Technique: Portable upright chest Findings: Patient still shows a prominent heart size with prior coronary artery bypass grafting and a permanent pacemaker. No marked change in this appearance is seen on the current study. Mild chronic lung changes are seen but again no acute cardiopulmonary findings are seen. No acute bony findings are seen although patient shows mild changes in the mid and lower thoracic region. Impression: Similar appearance the previous study with prior cardiac surgery and a permanent pacemaker in position without significant cardiac decompensation. . Assessment and Plan - Assessment and Plan (1) Chest pain Status: Acute Trend serial troponin: 1) 0.012, 2)0.179 3) 0.179, 4) 0.096 EKG: A Fib with RVR, HR 145, anterior VA? (2) Atrial fibrillation with RVR Status: Acute Rate slowed with Verapamil IV - Amiodarone bolus and drip - Change to oral before discharge (200mg BID for 3 days then 200mg daily) - EKG is converts to SR - TSH and Mag (3) Inguinal hernia Status: Chronic Repair planned for Friday, will need to reschedule pending clearance from his roads and parking lots sweeper operator (4) Coronary artery disease Status: Chronic Last stent 12/17/16 (5) COPD (chronic obstructive pulmonary disease) Status: Chronic (6) NSTEMI (non-ST elevated myocardial infarction) Problem details: type II Status: Acute elevated troponin likely from demand ischemia due to RVR - Troponin 1) 0.012, 2) 0.179, 3)0.179, 4) 0.096 - EKG: A Fib with RVR, HR 145, anterior VA? - follow up with Dr. Barnett next week - Assessment and Plan NSTEMI, type 2: elevated troponin likely from demand ischemia due to RVR - Troponin 1) 0.012, 2) 0.179, 3)0.179, 4) 0.096 - follow up with Dr. Barnett next week Chest pain:Trend serial troponin: 1) 0.012, 2)0.179 3) 0.179, 4) 0.096 - EKG: A Fib with RVR, HR 145, anterior VA? AFib RVR: Rate slowed with Verapamil IV - Amiodarone bolus and drip - Change to oral before discharge (200mg BID for 3 days then 200mg daily) - EKG is converts to SR - TSH and Mag Inguinal Hernia: Repair planned for Friday, will need to reschedule pending clearance from his roads and parking lots sweeper operator. Phuc was examined and findings where discussed with Dr. Huff. Clinical chart was viewed remotely and together we developed the plan of care for this patient. Thank you for allowing us to participate in the care of this patient. <Robin Huff - Last Filed: 12/24/17 13:28> [facility] Patient Stated Medical History Transient Ischemic Attacks ( Yes TIA) Cataracts Yes: both eyes Hearing Loss Yes Cardiac Arrhythmia Yes Coronary Artery Disease Yes Hypertension Yes Asthma Yes Other Respiratory Yes: shira christianson breathing disorder Ulcer Yes Hx Benign Prostatic Yes Hyperplasia Hx Urinary Tract Infection Yes Osteoarthritis Yes Clostridium Difficile Yes Sepsis Yes: UTI Blood Transfusions Yes Depression Yes Clinic Medical History (Last Updated 12/20/17 @ 10:54 by Jesica Akers MD) Sick sinus syndrome (Chronic Medical) Pacemaker 01/20 Hyperlipidemia (Chronic Medical) Diastolic heart failure (Chronic Medical) C. difficile colitis (Resolved Medical) Diverticulitis (Resolved Medical) Nephrolithiasis (Resolved Medical) CAD (coronary artery disease) (Acute Medical) stents/4v CABG; Dr. 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 Stroke (Resolved Medical) TIA; no residual Family History: Family History (Last Updated 12/20/17 @ 10:45 by Jesica Akers MD) Mother Cancer of thyroid Arthritis High blood pressure Father Dementia Sister Irregular cardiac rhythm Exam Vital signs: Temperature 97.4 F 12/20/17 13:00 Pulse Rate 94 12/20/17 14:15 Respiratory Rate 24 12/20/17 14:15 Blood Pressure 159/75 H 12/20/17 13:00 Pulse Oximetry 95 12/20/17 14:15 Results 12/19/17 16:50 12/19/17 16:50 Assessment and Plan - Attestation Attestation Narrative: 12/24/17 13:27 Recommendation I agree with the above and I am involved in the formulation of the patient's plan of care. - Assessment and Plan (1) Atrial fibrillation with RVR Status: Acute (2) Inguinal hernia Status: Chronic (3) Chest pain Status: Acute (4) Coronary artery disease Status: Chronic (5) COPD (chronic obstructive pulmonary disease) Status: Chronic (6) NSTEMI (non-ST elevated myocardial infarction) Problem details: type II Status: Acute Hospital Course Summary Disclaimer: The visit summary below is not to be considered part of the above Progress Note.
[2017-12-19] MEDS ORDERED: ASPIRIN 325 MG TABLET PO ONE (23:05)
[2017-12-20] MEDS ORDERED: AMIODARONE 900 MG/18 ML IV SCH (03:30)
[2017-12-20] MEDS ORDERED: ASPIRIN *EC* 81 MG TABLET PO SCH (09:00)
[2017-12-20] MEDS ORDERED: SPIRONOLACTONE 25 MG TABLET PO SCH (09:00)
[2017-12-20] MEDS ORDERED: DIGOXIN 125 MCG TABLET PO SCH (09:00)
[2017-12-20] MEDS ORDERED: CLOPIDOGREL 75 MG TABLET PO SCH (09:00)
[2017-12-20] MEDS ORDERED: FUROSEMIDE 40 MG TABLET PO SCH (09:00)
[2017-12-20] MEDS ORDERED: NITROGLYCERIN 0.2 MG/HR PATCH TD SCH (09:00)
[2017-12-20] MEDS ORDERED: MONTELUKAST 10 MG TABLET PO PRN (12:12)
[2017-12-20] MEDS ORDERED: FLUTICASONE/VILANTEROL 100/25mcg INHALER ORAL INH SCH (12:15)
--- NOTE | 2017-12-20 12:15 | History & Physical Report ---
- History and Physical History and Physical: Dr. Briggs's note reviewed. Mr. Ventura interviewed and examined. Patient's provided majority of history. CC: Chest pain/palpitations HPI: Mr. Ventura is an 82-year-old gentleman with known coronary artery disease and paroxysmal atrial fibrillation. He was recently undergone preoperative cardiac evaluation by Dr. Barnett including echocardiogram and thallium stress test which were reported to be unremarkable and patient was advised he could proceed with planned hernia repair tenably scheduled for Friday. Yesterday morning he reported "feeling off"; blood pressure was 108/60 and heart rate was normal. Early in the afternoon he felt worse and his recheck vital signs at 1:15 when heart rate was found to be 148. At that time the patient was having palpitations and was aware of rapid heartbeats. Within the next half an hour of 45 minutes he began experiencing pain in his anterior left chest radiating to the left shoulder and neck. He describes diaphoresis and intermittent nausea but no dyspnea. He denied pleuritic pain or positional component to pain. He did not try any medications to alleviate pain at home. He describes pain as comparable to past heart pain and prior episodes of atrial fibrillation. He presented to the [place] emergency room was found to be in atrial fibrillation with rapid ventricular response. He was treated with 5 mg of IV verapamil followed by 10 mg IV which improved cardiac rate but he remained in atrial fibrillation. Dr. Acuña spoke with the on-call physician for Dr. Barnett and initiation of IV amiodarone was recommended. Patient was subsequently hospitalized with IV amiodarone infusion initiated. Approximately 2 -3 hours later he converted to sinus/paced rhythm. This morning he is completely asymptomatic denying any residual chest pain or palpitations. Troponin bumped slightly to peak of 0.179. Patient is tentatively scheduled for hernia repair on Friday by Dr. Ramos. PH/SH/FH: agree with that recorded last night by Dr. Briggs with additional history of hyperlipidemia, diastolic CHF, prior nephrolithiasis, early dementia , history C. difficile colitis and diverticulitis but denies history of inflammatory bowel disease or stroke reporting he only had a TIA. Patient has had bilateral cataract extractions and had pacemaker placed in 2014. Last cardiac stent was in October 2014. Patient has no history of tobacco, alcohol, or illicit drug use. His is his DPOA and the patient has a DO NOT RESUSCITATE order. ROS: As previously reported by Dr. Briggs EXAM: General-NAD, alert, cooperative, slightly confused and defers most history to his ; 97.3, 88, 149/68, 96% room air HEENT-PERRL, EOMI without nystagmus, conjunctiva clear, sclera anicteric, conjugate gaze, facial structures symmetric, oropharynx clear, neck supple and without adenopathy Lungs-respirations nonlabored, decreased airflow throughout, breath sounds clear , no wheezing Cardiac-regular rhythm, S1-S2 Abd-soft, nontender, no fullness or masses palpable, bowel sounds present Ext-without edema Skin-no wounds visible nor generalized rash Neuro-cranial nerves 3-12 intact, motor tone/power within normal limits, no tremors, sensation intact to light touch 4 extremities Psych-calm, pleasant DATA: WBC 9.2, hemoglobin 16.3, INR 1.16 (off warfarin preoperatively and on Xarelto), electrolytes unremarkable, creatinine 1.1 with GFR 64, liver enzymes within normal limits. Troponin <0.012-0.179-0.179-0.096, proBNP 1947 TSH 1.18, Digoxin 1.1 Chest x-ray reviewed by myself demonstrating borderline cardiomegaly, chronic lung changes/scarring without CHF. Initial EKG reviewed demonstrating atrial fibrillation/flutter with rate of 145 , LBBB, LAFB, scooped ST segments in leads 1 and AVR EKG this morning atrial paced rhythm, LAFB, poor R-wave progression/anterior MT ; no acute ST/T-wave changes A/P: Paroxysmal atrial fibrillation with RVR Chest pain Elevated troponin Coronary artery disease COPD/asthma Inguinal hernia Hypertension Anxiety/depression Early dementia Continue IV amiodarone pending reassessment by cardiology today. Anticipate conversion to oral amiodarone and possible discharge later today unless further acute cardiac evaluation anticipated. Given recent outpatient cardiac testing I doubt that other acute interventions will be pursued at this time. Patient is anticoagulated already on Xarelto which will be continued until the night before surgery. Will discuss timing of surgery with cardiology; have discussed delaying surgery with the patient to permit patient to follow-up with his usual beverage host for reassessment and to assure that rhythm remained stable. Resume home medications for chronic conditions. DO NOT RESUSCITATE order written in conjunction with patient/'s expressed wish.
[2017-12-20 13:11] VITALS: BP 159/75; TEMP 97.4
[2017-12-20] MEDS ORDERED: AMIODARONE 200 MG TABLET PO SCH (13:15)
[2017-12-20 14:20] VITALS: PULSE 94; RESP 24; O2SAT 95
--- NOTE | 2017-12-20 14:36 | Discharge Summary ---
Discharge Information Date of admission: 12/19/17 20:16 Anticipated date of discharge: 12/20/17 Attending Physician: Jesica Akers MD Primary care physician: Dr. James Consults: Dr. Huff - Discharge Diagnosis (1) Atrial fibrillation with RVR Status: Acute (2) Chest pain Status: Acute (3) NSTEMI (non-ST elevated myocardial infarction) Status: Acute (4) Coronary artery disease Status: Chronic (5) Inguinal hernia Status: Chronic Paroxysmal atrial fibrillation with RVR Chest pain Elevated troponin/non-ST elevation ID Coronary artery disease COPD/asthma Inguinal hernia Hypertension Anxiety/depression Early dementia - Laboratory Labs: INR 1.16, TSH 1.88, digoxin level 1.1 Troponin <0.012-0.179-0.179-0.096 CBC, CMP unremarkable - Radiology Radiology: Portal chest x-ray on 12/19/17 demonstrated mild chronic lung changes present previously, prior CABG, and permanent pacemaker. Heart is borderline enlarged. No acute changes. History of Present Illness HPI: This is a pleasant 82 y/o male with a history of paroxysmal atrial fibrillation. The patient is preparing for an inguinal hernia repair on Friday and had his coumadin held and was switched to xarelto. The patient woke up this morning not feeling well. About 1 pm he had onset of rapid heart rate. During this period of time of rapid heart rate he complained of chest pressure with sx radiating to his left jaw and neck. When he presented to the ED his rate was initially treated with verapamil IV 5mg and then 10mg without effect. He was subsequently given labetalol which has helped. The patient's pain in his chest resolved with rate control. The pateint's initial troponin fortunately after over 2 hours or more of chest pain was completly negative with a non ischemic EKG. The patient was discussed with his primary photographic printer out of [place] who r/c admission on amio gtt. The patient preferred to stay local. Given this request our local [employer] graciously agreed to participate in the care of this patient. 150 mg of amiodarone was started in the ED intravenously and he is admitted to the ICU for amio gtt. Objective Vital signs: Temperature 97.4 F 12/20/17 13:00 Pulse Rate 94 12/20/17 14:15 Respiratory Rate 24 12/20/17 14:15 Blood Pressure 159/75 H 12/20/17 13:00 Pulse Oximetry 95 12/20/17 14:15 NAD, alert although defers history to his Diminished breath sounds throughout a clear, respirations nonlabored Regular rhythm, S1-S2 Abdomen benign Extremities without edema Height/Weight/BMI: Height 1.65 m Weight 86.6 kg Body Mass Index 31.4 Hospital Course This is a general summary of the patient's hospital course. For more details refer to the complete medical record. Hospital course: Mr. Ventura was admitted to the CCU Friday evening and was treated with IV amiodarone per usual protocol overnight converting to sinus/paced rhythm several hours after admission. Troponin bumped slightly but there were no acute EKG changes. He was seen by Dr. Huff's nurse practitioner on the evening of hospitalization. Patient remained stable through early afternoon 12/20 at which point it was elected to convert to oral amiodarone and discharged home. The patient has recently had preoperative cardiac evaluation including a thallium stress test which was reported to the patient to be unremarkable to inpatient ischemic testing was not felt necessary. Patient indicated he felt great on the morning of the with complete resolution of chest pain and palpitations. He denied dyspnea or residual pain in his neck or shoulders. I've recommended follow-up with Dr. Barnett this week for reassessment prior to proceeding with surgery which will need to be rescheduled. Options for anticoagulation at this point were discussed; patient has enough Xarelto for 5 days and will remain on Xarelto daily until discussing plans with Dr. Barnett and Dr. Ramos to determine when he can proceed with surgery. Warfarin remains on hold at this time and the patient/ were advised that warfarin dose will need to be modified when it is resumed if he remains on amiodarone. Stable for discharge with recommendations that the follow-up Dr. Barnett next week and notify Dr. Ramos's office of need to cancel surgery early Friday morning. Time spent with patient: discharge greater than 30 minutes Resuscitation Status: Do Not Resuscitate Discharge Plan - Discharge Disposition Discharge Date: 12/20/17 Disposition: 01 Discharged Home, Self-Care *Condition: Stable Reason For Visit (Visit label in EMR): atrial fib - Discharge Medications *Discharge Medications: New Amiodarone [Pacerone] 200 mg PO DAILY #30 tab Continue Albuterol Sulfate [Proair Hfa] 1 puff INH Q4H PRN #0 PRN Reason: Prn Orders Ferrous Sulfate [Iron] 325 mg PO DAILY Clopidogrel Bisulfate [Clopidogrel] 75 mg PO DAILY Acetaminophen/Diphenhydramine [Acetaminophen-Diphenhyd 500-25] 1 tab PO HS PRN PRN Reason: Prn Orders Allopurinol [Zyloprim] 100 mg PO DAILY Aspirin [Ecotrin] 81 mg PO DAILY LORazepam [Ativan] 0.5 mg PO TID PRN PRN Reason: Anxiety Montelukast [Singulair] 10 mg PO DAILY PRN PRN Reason: Allergy Symptoms Nitroglycerin Patch [Nitro-Dur 0.2 mg/Hr] 1 patch TD DAILY Tamsulosin [Flomax] 0.4 mg PO HS Fluticasone/Vilanterol Inhaler [Breo Ellipta 100-25 mcg Inhaler] 1 puff INH DAILY Levomilnacipran [Fetzima] 40 mg PO HS Metoprolol Succinate [Toprol Xl] 50 mg PO HS Digoxin 125 mcg PO DAILY Spironolactone [Aldactone] 25 mg PO DAILY Rosuvastatin [Crestor] 5 mg PO Q2D Potassium Chloride 20 meq PO DAILY Nitroglycerin 0.4 mg SL Q5MIN PRN #0 PRN Reason: Chest Pain Dexlansoprazole [Dexilant] 60 mg PO DAILY #0 Furosemide [Lasix 40 mg Tab] 40 mg PO DAILY Verapamil HCl [Verapamil ER] 120 mg PO DAILY Changed Rivaroxaban [Xarelto] 20 mg PO WS #0 Discontinued Warfarin Sodium 2 mg PO DAILY #0 - Discharge Packet/Instructions *Diet: Cardiac *Activity: As tolerate *Pain Management/Treatment: Tylenol per package instructions if something needed *Wound Care: Not applicable Additional Instructions: Continue medications as before with the addition of amiodarone 200 mg taken twice a day for 3 days and then once a day (please note your bottle will simply say take once a day but you should take it twice daily on Friday, Friday, and Friday); schedule a follow-up appointment with Dr. Barnett for next week to reevaluate for stability before rescheduling surgery. Contact Dr. Ramos's office early Friday morning to let him know surgery needs to be delayed. *Expected Signs/Symptoms: No new symptoms except expected *Notify Physician if: You have chest pain or rapid heartbeats again; you develop severe abdominal pain *During Business Hours Contact: Dr. James's office or Dr. Barnett's office *After Business Hours Contact: Call [facility] at [phone] and ask that the on-call physician be paged *Pending Lab/Results: No Pending Lab - Referrals/Follow Up *Referrals/Follow Up: Felisha Barnett MD [Physician] - (This week) Tang James DO [Physician] - (1-2 weeks) - Patient Handouts Patient Handouts: A-fib (Atrial Fibrillation) (DC) - Dismissal Complete Discharge Instructions are:: Complete Physician Narrative - Narrative Attestation Narrative: Date: 12/20/17 Time: 2072
[2017-12-20] MEDS ORDERED: RIVAROXABAN 20 MG TABLET PO SCH (18:00)
[2017-12-20] MEDS ORDERED: LEVOMILNACIPRAN PO SCH (21:00)
[2017-12-21] MEDS ORDERED: PANTOPRAZOLE 40 MG TABLET PO SCH (06:30)
[2017-12-21] MEDS ORDERED: ALLOPURINOL 100 MG TABLET PO SCH (09:00)
== END 2017-12-20 14:50 | disposition home or self-care (01) | DRG 281 ==
LOC: ED 16:01 → CCU 20:16
PROVIDERS: ADMIT Emergency Medicine; ATTEND Internal Medicine